=== PATIENT | male | born 1960 | race Caucasian/White ===

== ENCOUNTER 2016-12-30 16:25 | Emergency (ER) | payer MEDICAID ==
[2016-12-30 17:26] LABS: BASO % 0.7 % (0-6); EOS % 3.3 % (0-6); GRAN % 61.7 % (47-80); HEMATOCRIT 48.5 % (42.0-52.0); HEMOGLOBIN 17.3 gm/dl (14.0-18.0); MEAN CELL VOLUME 93.8 fl (81-97); MEAN CORPUSCULAR HEMOGLOBIN 33.5 pg (27-33); MEAN CORPUSCULAR HGB CONC 35.7 g/dl (32-36); MEAN PLATELET VOLUME 11.9 fl (7.4-10.4); MONO % 9.3 % (0-9); PLATELET COUNT 161 K/uL (130-400); RED BLOOD COUNT 5.17 M/uL (4.40-5.70); RED CELL DISTRIBUTION WIDTH 13.2 % (11.5-14.5); WHITE BLOOD COUNT W/O DIFF 10.8 K/uL (4.2-12.2)
[2016-12-30 17:36] LABS: BLOOD UREA NITROGEN 15 mg/dL (9-20); CREATININE 0.9 mg/dL (0.66-1.25); EST GLOMERULAR FILTRATION RATE > 60 ml/min; GLUCOSE,RANDOM 118 mg/dL (70-110)
[2016-12-30 17:54] LABS: TROPONIN I < 0.012 ng/mL (0.00-0.034)
[2016-12-30 18:06] LABS: THYROID STIMULATING HORMONE 1.93 uIU/ml (0.465-4.68)
--- NOTE | 2016-12-30 18:23 | Emergency Department Record ---
History of Present Illness - General Chief Complaint: Arrythmia/Palpitations Stated Complaint: THINKS PACEMAKER NOT WORKING Time Seen by Provider: 12/30/16 16:38 Source: Patient Mode of Arrival: Ambulatory Limitations: No limitations - History of Present Illness Initial Comments: pt had a pacer put in 3 days ago in [place]. he feels it is not working properly. he has had palpitations and states hes very weak and 'something is not right'. he states he was supposed to feel better and have more energy but he does not MD Complaint: Palpitations Onset/Timin -: Days(s) Context: Occurred during rest Arrythmia History: Pacemaker Associated Symptoms: Denies other symptoms, Anxiety - Related Data Home Medications Medication Instructions Recorded Confirmed Last Taken Aspirin 81 mg PO DAILY 12/30/16 12/30/16 1 Day Ago ~12/29/16 Carvedilol 6.25 mg PO DAILY 12/30/16 12/30/16 1 Day Ago ~12/29/16 Previous Rx's Medication Instructions Recorded Lorazepam [Ativan] 0.5 mg PO TID #10 tablet 12/30/16 Allergies Allergy/AdvReac Type Severity Reaction Status Date / Time acetaminophen [From Vicodin] Allergy Intermediate VOMITING Verified 12/30/16 16: 44 hydrocodone bitartrate Allergy Intermediate VOMITING Verified 12/30/16 16:44 [From Vicodin] morphine Allergy Intermediate VOMITING Verified 12/30/16 16:44 Penicillins Allergy VOMITING Verified 12/30/16 16:44 Travel Screening - Travel/Exposure Within Last 30 Days Have you traveled within the last 30 days?: No - Travel/Exposure Within Last Year Have you traveled outside the [place] in the last year?: No - Additonal Travel Details Have you been exposed to anyone with a communicable illness?: No - Travel Symptoms Symptom Screening: None Review of Systems Reviewed: No additional complaints except as noted below Constitutional: Reports: As per HPI. Denies: Chills, Fever, Malaise, Night sweats, Weakness, Weight change Eyes: Reports: As per HPI. Denies: Eye discharge, Eye pain, Photophobia, Vision change ENT: Reports: As per HPI. Denies: Congestion, Dental pain, Ear pain, Epistaxis , Hearing loss, Throat pain Respiratory: Reports: As per HPI. Denies: Cough, Dyspnea, Hemoptysis, Stridor, Wheezes Cardiovascular: Reports: As per HPI. Denies: Arrhythmia, Chest pain, Dyspnea on exertion, Edema, Murmurs, Orthopnea, Palpitations, Paroxysmal nocturnal dyspnea, Rheumatic Fever, Syncope Endocrine: Reports: As per HPI. Denies: Fatigue, Heat or cold intolerance, Polydipsia, Polyuria Gastrointestinal: Reports: As per HPI. Denies: Abdominal pain, Constipation, Diarrhea, Hematemesis, Hematochezia, Melena, Nausea, Vomiting Genitourinary: Reports: As per HPI. Denies: Dysuria, Frequency, Hematuria, Incontinence, Retention, Testicular pain, Testicular mass, Urgency Musculoskeletal: Reports: As per HPI. Denies: Arthralgia, Back pain, Gout, Joint swelling, Myalgia, Neck pain Skin: Reports: As per HPI. Denies: Bruising, Change in color, Change in hair/ nails, Lesions, Pruritus, Rash Neurological: Reports: As per HPI. Denies: Abnormal gait, Confusion, Headache, Numbness, Paresthesias, Seizure, Tingling, Tremors, Vertigo, Weakness Psychiatric: Reports: As per HPI. Denies: Anxiety, Auditory hallucinations, Depression, Homicidal thoughts, Suicidal thoughts, Visual hallucinations Hematological/Lymphatic: Reports: As per HPI. Denies: Anemia, Blood Clots, Easy bleeding, Easy bruising, Swollen glands Past Medical History - SOCIAL HISTORY Smoking Status: Current every day smoker Alcohol Use: None Alcohol Use Comment: none in 3 months Drug Use: None - RESPIRATORY Hx Respiratory Disorders: No - CARDIOVASCULAR Hx Abnormal EKG: Yes Hx Hypertension: Yes Hx Irregular Heartbeat: Yes Hx Palpitations: Yes Hx Pacemaker/Defib: Yes Comment:: all started in August and discoverwed low HR - NEURO Hx Neuro Disorders: No - GI Hx Reflux: Yes - Hx Genitourinary Disorders: No - ENDOCRINE Hx Diabetes: No Hx Thyroid Disease: No - PSYCH Hx Psych Problems: No - HEMATOLOGY/ONCOLOGY Hx Anemia: No Hx Blood Disorders: No Hx Bruising: No Hx Cancer: No Family Medical History Any Significant Family History?: Yes Hx Cancer: Mother Hx Heart Disease: Father Hx HTN: Mother Hx Stroke: Mother Physical Exam - General General Appearance: Alert, Oriented x3, Cooperative, Mild distress - Head Head exam: Normal inspection - Eye Eye exam: Normal appearance, PERRL, EOMI Pupils: Normal accommodation - ENT ENT exam: Normal exam, Mucous membranes moist, Normal external ear exam, Normal orophraynx Ear exam: Normal external inspection. negative: External canal tenderness Nasal Exam: Normal inspection. negative: Discharge, Sinus tenderness Mouth exam: Normal external inspection, Tongue normal Teeth exam: Normal inspection. negative: Dental caries Throat exam: Normal inspection. negative: Tonsillar erythema, Tonsillar exudate - Neck Neck exam: Normal inspection, Full ROM. negative: Tenderness - Respiratory Respiratory exam: Normal lung sounds bilaterally. negative: Respiratory distress - Cardiovascular Cardiovascular Exam: Regular rate, Normal rhythm, Normal heart sounds - GI/Abdominal GI/Abdominal exam: Soft, Normal bowel sounds. negative: Tenderness - Rectal Rectal exam: Deferred - exam: Deferred - Extremities Extremities exam: Normal inspection, Full ROM, Normal capillary refill. negative: Tenderness - Back Back exam: Reports: Normal inspection, Full ROM. Denies: Muscle spasm, Rash noted, Tenderness - Neurological Neurological exam: Alert, CN II-XII intact, Normal gait, Oriented X3 - Psychiatric Psychiatric exam: Normal affect, Normal mood - Skin Skin exam: Dry, Intact, Normal color, Warm Course Vital Signs 12/30/16 16:32 Temperature 97.7 F Pulse Rate 60 Respiratory 18 Rate Blood Pressure 172/116 Pulse Ox 95 - Reevaluation(s) Reevaluation #1: 12/30/16 18:31 d/w dr cardenas in [place] who is seconds handler for dr chung Medical Decision Making - Lab Data Result diagrams: 12/30/16 17:25 12/30/16 17:25 Lab Results 12/30/16 12/30/16 Range/Units 17:25 17:25 WBC 10.8 (4.2-12.2) K/uL RBC 5.17 (4.40-5.70) M/uL Hgb 17.3 (14.0-18.0) gm/dl Hct 48.5 (42.0-52.0) % MCV 93.8 (81-97) fl MCH 33.5 H (27-33) pg MCHC 35.7 (32-36) g/dl RDW 13.2 (11.5-14.5) % Plt Count 161 (130-400) K/uL MPV 11.9 H (7.4-10.4) fl Gran % 61.7 (47-80) % Lymphocytes % 25.0 (16-45) % Monocytes % 9.3 H (0-9) % Eosinophils % 3.3 (0-6) % Basophils % 0.7 (0-6) % Sodium 141 (136-145) mmol/L Potassium 3.8 (3.5-5.1) mmol/L Chloride 105 (98-107) mmol/L Carbon Dioxide 30.0 (22-30) mmol/L Anion Gap 6.0 L (7-16) BUN 15 (9-20) mg/dL Creatinine 0.9 (0.66-1.25) mg/dL Estimated GFR > 60 ml/min Random Glucose 118 H (70-110) mg/dL Calcium 9.6 (8.5-10.1) mg/dL Troponin I < 0.012 (0.00-0.034) ng/mL TSH 1.93 (0.465-4.68) uIU/ml Disposition Disposition: Discharge Clinical Impression: Heart palpitations, Postsurgical cardiac pacemaker in situ Disposition: Home, Self-Care Condition: (1) Good Instructions: Heart Palpitations (ED) Additional Instructions: follow up with stadium manager this week. return sooner if worse. Prescriptions: Lorazepam [Ativan] 0.5 mg PO TID #10 tablet Forms: Patient Portal Access Quality - Quality Measures Quality Measures: N/A - Blood Pressure Screening Does Patient Have Any of the Following: Active Dx of HTN Blood Pressure Classification: Hypertensive Reading Systolic Measurement: 172 Diastolic Measurement: 116 Screening for High Blood Pressure: Patient Exclusion, Hx of HTN [G9744]
[2016-12-30] MEDS ORDERED: LORAZEPAM 2 MG/ML VIAL IV ONE (18:35)
[2016-12-30] MEDS ORDERED: CARVEDILOL 3.125 MG TABLET PO ONE (19:13)
--- NOTE | 2016-12-31 22:36 | RADIOLOGY REPORT ---
EXAM: CHEST 2 VIEWS HISTORY: PACEMAKER PLACED 12/27/16. REDNESS AND SWELLING AROUND THE SURGICAL SITE. TECHNIQUE: Two views. COMPARISON: 12/21/16. FINDINGS: The heart is not enlarged and there is no mediastinal mass. No infiltrate or vascular congestion. A pacemaker is present. The pacemaker power pack overlies the left upper thorax. No pneumothorax. IMPRESSION: 1. THERE IS A PACEMAKER IN PLACE. 2. CHEST OTHERWISE UNREMARKABLE. JOB NUMBER: [id number] MTDD
== END 2016-12-30 19:30 | disposition home or self-care (01) ==
LOC: ER 16:25
DX: R00.2 Palpitations (principal); Z95.0 Presence of cardiac pacemaker; I10 Essential (primary) hypertension; F17.210 Nicotine dependence, cigarettes, uncomplicated
CPT/HCPCS: 99284 ×2; 96374; 85025; 84484; 80048; 84443; 71020; 93005; 93010; J2060

== ENCOUNTER 2017-01-12 09:09 | Emergency (ER) | payer MEDICAID ==
--- NOTE | 2017-01-12 09:39 | Emergency Department Record ---
History of Present Illness - General Chief Complaint: Wound, puncture Stated Complaint: SURGICAL SITE DRAINING Time Seen by Provider: 01/12/17 09:20 Source: Patient Mode of Arrival: Ambulatory Limitations: No limitations - History of Present Illness Initial Commments: pt came in because his incision for his newly placed pacer was oozing dark blood. he had the jay removed 2 days ago and glue was placed. road gang supervisor had told him that if it started bleeding again to go to an er and have more glue placed on it. Onset/Timin -: Hour(s) Location: Chest Place: Home Associated Symptoms: None Treatments Prior to Arrival: Bandage - Karoline Coma Scale Eye Response: (4) Open spontaneously Motor Response: (6) Obeys commands Verbal Response: (5) Oriented Karoline Total: 15 - Related Data Previous Rx's Medication Instructions Recorded Lorazepam [Ativan] 0.5 mg PO TID #10 tablet 12/30/16 Allergies Allergy/AdvReac Type Severity Reaction Status Date / Time acetaminophen [From Vicodin] AdvReac Intermediate VOMITING Verified 01/12/17 09: 15 hydrocodone bitartrate AdvReac Intermediate VOMITING Verified 01/12/17 09:15 [From Vicodin] morphine AdvReac Intermediate VOMITING Verified 01/12/17 09:15 Penicillins AdvReac VOMITING Verified 01/12/17 09:15 Travel Screening - Travel/Exposure Within Last 30 Days Have you traveled within the last 30 days?: No Review of Systems Reviewed: No additional complaints except as noted below Constitutional: Reports: As per HPI. Denies: Chills, Fever, Malaise, Night sweats, Weakness, Weight change Eyes: Reports: As per HPI. Denies: Eye discharge, Eye pain, Photophobia, Vision change ENT: Reports: As per HPI. Denies: Congestion, Dental pain, Ear pain, Epistaxis , Hearing loss, Throat pain Respiratory: Reports: As per HPI. Denies: Cough, Dyspnea, Hemoptysis, Stridor, Wheezes Cardiovascular: Reports: As per HPI. Denies: Arrhythmia, Chest pain, Dyspnea on exertion, Edema, Murmurs, Orthopnea, Palpitations, Paroxysmal nocturnal dyspnea, Rheumatic Fever, Syncope Endocrine: Reports: As per HPI. Denies: Fatigue, Heat or cold intolerance, Polydipsia, Polyuria Gastrointestinal: Reports: As per HPI. Denies: Abdominal pain, Constipation, Diarrhea, Hematemesis, Hematochezia, Melena, Nausea, Vomiting Genitourinary: Reports: As per HPI. Denies: Dysuria, Frequency, Hematuria, Incontinence, Retention, Testicular pain, Testicular mass, Urgency Musculoskeletal: Reports: As per HPI. Denies: Arthralgia, Back pain, Gout, Joint swelling, Myalgia, Neck pain Skin: Reports: As per HPI. Denies: Bruising, Change in color, Change in hair/ nails, Lesions, Pruritus, Rash Neurological: Reports: As per HPI. Denies: Abnormal gait, Confusion, Headache, Numbness, Paresthesias, Seizure, Tingling, Tremors, Vertigo, Weakness Psychiatric: Reports: As per HPI. Denies: Anxiety, Auditory hallucinations, Depression, Homicidal thoughts, Suicidal thoughts, Visual hallucinations Hematological/Lymphatic: Reports: As per HPI. Denies: Anemia, Blood Clots, Easy bleeding, Easy bruising, Swollen glands Past Medical History - SOCIAL HISTORY Smoking Status: Current every day smoker Alcohol Use: None Drug Use: None - RESPIRATORY Hx Respiratory Disorders: No - CARDIOVASCULAR Hx Cardio Disorders: Yes Hx Abnormal EKG: Yes Hx Hypertension: Yes Hx Irregular Heartbeat: Yes Hx Palpitations: Yes Hx Pacemaker/Defib: Yes - NEURO Hx Neuro Disorders: No - GI Hx GI Disorders: Yes Hx Reflux: Yes - Hx Genitourinary Disorders: No - ENDOCRINE Hx Endocrine Disorders: No - MUSCULOSKELETAL Hx Musculoskeletal Disorders: Yes - PSYCH Hx Psych Problems: No - HEMATOLOGY/ONCOLOGY Hx Hematology/Oncology Disorders: No Family Medical History Any Significant Family History?: Yes Hx Cancer: Mother Hx Heart Disease: Father Hx HTN: Mother Hx Stroke: Mother Physical Exam - General General Appearance: Alert, Oriented x3, Cooperative, Mild distress - Head Head exam: Normal inspection - Eye Eye exam: Normal appearance, PERRL, EOMI Pupils: Normal accommodation - ENT ENT exam: Normal exam, Mucous membranes moist, Normal external ear exam, Normal orophraynx Ear exam: Normal external inspection. negative: External canal tenderness Nasal Exam: Normal inspection. negative: Discharge, Sinus tenderness Mouth exam: Normal external inspection, Tongue normal Teeth exam: Normal inspection. negative: Dental caries Throat exam: Normal inspection. negative: Tonsillar erythema, Tonsillar exudate - Neck Neck exam: Normal inspection, Full ROM. negative: Tenderness - Respiratory Respiratory exam: Normal lung sounds bilaterally, Chest wall tenderness, Other ( pacer site is oozing dark blood). negative: Respiratory distress - Cardiovascular Cardiovascular Exam: Regular rate, Normal rhythm, Normal heart sounds - GI/Abdominal GI/Abdominal exam: Soft, Normal bowel sounds. negative: Tenderness - Rectal Rectal exam: Deferred - exam: Deferred - Extremities Extremities exam: Normal inspection, Full ROM, Normal capillary refill. negative: Tenderness - Back Back exam: Reports: Normal inspection, Full ROM. Denies: Muscle spasm, Rash noted, Tenderness - Neurological Neurological exam: Alert, CN II-XII intact, Normal gait, Oriented X3 - Psychiatric Psychiatric exam: Normal affect, Normal mood - Skin Skin exam: Dry, Intact, Normal color, Warm Course Vital Signs 01/12/17 09:19 Temperature 98.0 F Pulse Rate 68 Respiratory 20 Rate Blood Pressure 157/125 Pulse Ox 96 - Reevaluation(s) Reevaluation #1: 01/12/17 10:15 d/w dr Avalos who wants pt to come see him if it bleeds more. i told dr avalos i was concerned it might dehisce Disposition Disposition: Discharge Clinical Impression: Surgical site reaction Qualifiers: Encounter type: initial encounter Qualified Code(s): T81.9XXA - Unspecified complication of procedure, initial encounter Hypertension Qualifiers: Hypertension type: essential hypertension Qualified Code(s): I10 - Essential ( primary) hypertension Disposition: Home, Self-Care Condition: (1) Good Instructions: Wound Dehiscence (ED), Wound Healing and Your Diet (ED), Hypertension (ED) Additional Instructions: follow up with dr avalos. return sooner if worse. rest. continue dr urena instructions Forms: Patient Portal Access Quality - Quality Measures Quality Measures: N/A - Blood Pressure Screening Does Patient Have Any of the Following: No Blood Pressure Classification: Hypertensive Reading Systolic Measurement: 157 Diastolic Measurement: 125 Screening for High Blood Pressure: < First Hypertensive BP, F/U Documented > [ G8950] First Hypertensive Follow-up Interventions: Follow-up with rescreen GT 1 day and LT 4 weeks.
== END 2017-01-12 10:25 | disposition home or self-care (01) ==
LOC: ER 09:09
DX: L76.22 Postprocedural hemorrhage of skin and subcutaneous tissue following other procedure (principal); Y71.3 Surgical instruments, materials and cardiovascular devices (including sutures) associated with adverse incidents; I10 Essential (primary) hypertension; F17.210 Nicotine dependence, cigarettes, uncomplicated; Y92.009 Unspecified place in unspecified non-institutional (private) residence as the place of occurrence of the external cause
CPT/HCPCS: 99283

== ENCOUNTER 2017-01-13 18:29 | Emergency (ER) | payer MEDICAID ==
--- NOTE | 2017-01-13 19:22 | Emergency Department Record ---
History of Present Illness - General Chief Complaint: Wound, check Stated Complaint: PACE MAKER WOUND IS LEAKING Time Seen by Provider: 01/13/17 19:17 Source: Patient Mode of arrival: Ambulatory Limitations: No limitations - History of Present Illness Initial Comments: 56 yo male returns to ED for evaluation of mild bleeding from his pacemaker site in the left chest wall. Patient reports that his pacemaker was placed on , was seen by his hide inspector in follow-up for staple removal at the surgical site 4 days ago. Patient reports that his pacemaker site began bleeding yesterday, patient was seen at [facility] and repaired with Dermabond after speaking with the patient's hide inspector. Patient reports that while walking in [facility] today, his sound began to ooze dark blood again. MD Complaint: Wound re-check Onset/Timin -: Days(s) Initial Visit For: Other Returns Today for: Wound recheck, Other (bleeding from post-surgical site) Symptoms Since Prior Visit: No new symptoms Associated Symptoms: None - Related Data Previous Rx's Medication Instructions Recorded Lorazepam [Ativan] 0.5 mg PO TID #10 tablet 12/30/16 Allergies Allergy/AdvReac Type Severity Reaction Status Date / Time acetaminophen [From Vicodin] AdvReac Intermediate VOMITING Verified 01/12/17 09: 15 hydrocodone bitartrate AdvReac Intermediate VOMITING Verified 01/12/17 09:15 [From Vicodin] morphine AdvReac Intermediate VOMITING Verified 01/12/17 09:15 Penicillins AdvReac VOMITING Verified 01/12/17 09:15 Review of Systems Constitutional: Denies: Chills, Fever, Malaise, Night sweats Eyes: Denies: Eye discharge, Eye pain ENT: Denies: Congestion, Ear pain, Epistaxis Respiratory: Denies: Cough, Dyspnea Cardiovascular: Denies: Chest pain, Dyspnea on exertion Endocrine: Denies: Fatigue, Heat or cold intolerance Gastrointestinal: Denies: Abdominal pain, Nausea, Vomiting Genitourinary: Denies: Incontinence, Retention Musculoskeletal: Denies: Arthralgia, Back pain, Gout, Joint swelling Skin: Reports: Other (mild dark bleeding from pacemaker site). Denies: Bruising , Change in color, Change in hair/nails Neurological: Denies: Headache, Paresthesias, Seizure Psychiatric: Denies: Anxiety Hematological/Lymphatic: Denies: Anemia, Blood Clots Past Medical History - SOCIAL HISTORY Smoking Status: Current every day smoker Drug Use: None - RESPIRATORY Hx Respiratory Disorders: No - CARDIOVASCULAR Hx Cardio Disorders: Yes Hx Abnormal EKG: Yes Hx Hypertension: Yes Hx Irregular Heartbeat: Yes Hx Palpitations: Yes Hx Pacemaker/Defib: Yes - NEURO Hx Neuro Disorders: No - GI Hx GI Disorders: Yes Hx Reflux: Yes - Hx Genitourinary Disorders: No - ENDOCRINE Hx Endocrine Disorders: No - MUSCULOSKELETAL Hx Musculoskeletal Disorders: Yes - PSYCH Hx Psych Problems: No - HEMATOLOGY/ONCOLOGY Hx Hematology/Oncology Disorders: No Family Medical History Hx Cancer: Mother Hx Heart Disease: Father Hx HTN: Mother Hx Stroke: Mother Physical Exam - General General Appearance: Alert, Oriented x3, Cooperative, No acute distress Limitations: No limitations - Head Head exam: Atraumatic, Normocephalic, Normal inspection Head exam detail: negative: Abrasion, Contusion, Mike's sign, General tenderness, Hematoma, Laceration - Eye Eye exam: Normal appearance. negative: Conjunctival injection, Periorbital swelling, Periorbital tenderness, Scleral icterus - ENT Ear exam: negative: Auricular hematoma, Auricular trauma Nasal Exam: negative: Active bleeding, Discharge, Dried blood, Foreign body Mouth exam: negative: Drooling, Laceration, Muffled voice, Tongue elevation Teeth exam: Dental caries - Neck Neck exam: Normal inspection. negative: Tenderness - Respiratory Respiratory exam: Normal lung sounds bilaterally. negative: Respiratory distress, Rhonchi, Stridor, Wheezes - Cardiovascular Cardiovascular Exam: Regular rate, Normal rhythm, Normal heart sounds, Other ( 0.5 cm small area of wound dehiscence resulting in very minor oozing of venous blood from his post-surgical site) - GI/Abdominal GI/Abdominal exam: Soft. negative: Rebound, Rigid, Tenderness - Rectal Rectal exam: Deferred - exam: Deferred - Extremities Extremities exam: Normal inspection. negative: Pedal edema, Tenderness - Back Back exam: Denies: CVA tenderness (R), CVA tenderness (L) - Neurological Neurological exam: Alert, Normal gait, Oriented X3 - Psychiatric Psychiatric exam: Normal affect, Normal mood - Skin Skin exam: Normal color. negative: Abrasion Type of lesion: negative: abrasion Course Vital Signs 01/13/17 19:03 Temperature 97.9 F Pulse Rate [ 77 Pulse Ox Probe] Respiratory 16 Rate Blood Pressure 111/79 [Left Arm] Pulse Ox 96 - Reevaluation(s) Reevaluation #1: 01/13/17 19:31 Procedure Note: Wound was cleaned with TLE solution, Dermabond applied to specific region of bleeding with hemostasis achieved. Patient appears stable for discharge with instructions to follow-up with his hide inspector next week as scheduled. Disposition Disposition: Discharge Clinical Impression: Postoperative bleeding from incision Disposition: Home, Self-Care Condition: (2) Stable Instructions: Wound Dehiscence (ED) Additional Instructions: Return to ED if your symptoms worsen or if you have any concerns. Follow-up with your Assistant Professor Of German in [place] next Sunday as scheduled. Forms: Patient Portal Access Time of Disposition: 19:23 Quality - Quality Measures Quality Measures: N/A - Blood Pressure Screening Does Patient Have Any of the Following: No Blood Pressure Classification: Normal BP Reading Systolic Measurement: 111 Diastolic Measurement: 79 Screening for High Blood Pressure: < Normal BP, F/U Not Required > [G8783]
== END 2017-01-13 19:43 | disposition home or self-care (01) ==
LOC: ER 18:29
DX: T81.31XA Disruption of external operation (surgical) wound, not elsewhere classified, initial encounter (principal); Y71.3 Surgical instruments, materials and cardiovascular devices (including sutures) associated with adverse incidents; Y83.8 Other surgical procedures as the cause of abnormal reaction of the patient, or of later complication, without mention of misadventure at the time of the procedure
CPT/HCPCS: 99283

== ENCOUNTER 2017-01-25 09:00 | Observation (INO) | payer MEDICAID ==
[2017-01-25] MEDS ORDERED: ONDANSETRON HCL IV 4 MG/2 ML VIAL IVP ONE ×2 (09:16→13:48)
--- NOTE | 2017-01-25 09:16 | Emergency Department Record ---
History of Present Illness - General Chief Complaint: Chest Pain Stated Complaint: CHEST PAIN/SWEATING Time Seen by Provider: 01/25/17 09:12 Source: Patient Mode of Arrival: Ambulatory Limitations: No limitations - History of Present Illness Initial Comments: The patient is here due to chest heaviness for the last hour. It is located retrosternally and does radiate to his back. He denies any SOB or sweating with the pain. The onset was at rest and the patient did walk to the ER after the onset of the pain. The pain did not worsen with exertion and he has no hx of similar pain or issues. The patient did have a pacemaker placed a month ago for a low heart rate. MD Complaint: Chest pain Onset/Timin -: Minutes(s) Onset: During rest Pain Location: Substernal Pain Radiation: Back Severity scale (1-10): 8 Quality: Heaviness Consistency: Constant Improves With: Nothing Worsens With: Nothing Anginal Symptoms: Diaphoresis, Nausea Treatments Prior to Arrival: Aspirin - Related Data Allergies Allergy/AdvReac Type Severity Reaction Status Date / Time acetaminophen [From Vicodin] AdvReac Intermediate VOMITING Verified 01/12/17 09: 15 hydrocodone bitartrate AdvReac Intermediate VOMITING Verified 01/12/17 09:15 [From Vicodin] morphine AdvReac Intermediate VOMITING Verified 01/12/17 09:15 Penicillins AdvReac VOMITING Verified 01/12/17 09:15 Travel Screening - Travel/Exposure Within Last 30 Days Have you traveled within the last 30 days?: No Review of Systems Constitutional: Denies: Chills, Fever Eyes: Denies: Eye discharge ENT: Denies: Congestion Respiratory: Denies: Cough, Dyspnea Past Medical History - SOCIAL HISTORY Smoking Status: Current every day smoker Alcohol Use: None Drug Use: None - RESPIRATORY Hx Respiratory Disorders: No - CARDIOVASCULAR Hx Cardio Disorders: Yes Hx Abnormal EKG: Yes Hx Hypertension: Yes Hx Irregular Heartbeat: Yes Hx Palpitations: Yes Hx Pacemaker/Defib: Yes - NEURO Hx Neuro Disorders: No - GI Hx GI Disorders: Yes Hx Reflux: Yes - Hx Genitourinary Disorders: No - ENDOCRINE Hx Endocrine Disorders: No Hx Diabetes: No Hx Thyroid Disease: No - MUSCULOSKELETAL Hx Musculoskeletal Disorders: Yes - PSYCH Hx Psych Problems: No - HEMATOLOGY/ONCOLOGY Hx Hematology/Oncology Disorders: No Hx Anemia: No Hx Blood Disorders: No Hx Bruising: No Hx Cancer: No Family Medical History Any Significant Family History?: Yes Hx Cancer: Mother Hx Heart Disease: Father Hx HTN: Mother Hx Stroke: Mother Physical Exam - General General Appearance: Alert, Oriented x3, Cooperative, No acute distress - Head Head exam: Atraumatic, Normocephalic, Normal inspection - Eye Eye exam: Normal appearance, PERRL - ENT Throat exam: Normal inspection. negative: Tonsillar erythema, Tonsillar exudate - Neck Neck exam: Normal inspection, Full ROM. negative: Tenderness - Respiratory Respiratory exam: Normal lung sounds bilaterally. negative: Respiratory distress - Cardiovascular Cardiovascular Exam: Regular rate, Normal rhythm, Normal heart sounds - GI/Abdominal GI/Abdominal exam: Soft, Normal bowel sounds. negative: Tenderness - Extremities Extremities exam: Normal inspection, Full ROM, Normal capillary refill. negative: Tenderness - Neurological Neurological exam: Alert. negative: Motor sensory deficit Course Vital Signs 01/25/17 09:03 Pulse Rate 60 Respiratory 14 Rate Blood Pressure 195/135 Pulse Ox 97 - Reevaluation(s) Reevaluation #1: The patient is resting comfortably. Due to his long hx of uncontrolled HTN I am concerned about a thoracic dissection. Unfortunately the lab chemistry analyzer has malfunctioned today so we will be unable to perform renal function tests. The patient has had multiple renal function tests that were normal in the last 3 months so I do feel it is safe obtaining the CT without a BUN and CR prior to the test. I did explain that to the patient and he does agree. 01/25/17 09:38 Reevaluation #2: The patient is doing much better. His pain has almost completely resolved and his BP is improved. The last BP was 159/109 in the L arm which was improved from the 170/120 15 minutes prior. 01/25/17 09:44 01/25/17 10:05 The patient is back from CT. He is doing better and his chest pain has resolved. There is still very mild pain in his back. Reevaluation #3: The patient is doing a lot better at this time. He denies any pain or discomfort and is resting comfortably. 01/25/17 10:48 Reevaluation #4: The patient is doing a lot better at this time. His US was completed and did not demonstrate a GB abnormality. Additionally his LFT's do not demonstrate an obstructive picture so we will admit the patient here at [facility]. I did discuss the case with Dr. Harris and he is willing to admit the patient. 01/25/17 14:30 Medical Decision Making - Data Complexity MDM Data: X-Ray Ordered and/or Reviewed, EKG Ordered and/or Reviewed - Lab Data Result diagrams: 01/25/17 09:10 01/25/17 09:10 - EKG Data -: EKG Interpreted by Me EKG: No Acute Changes, Normal EKG - Radiology Data Radiology results: Report reviewed (CT: Neg for PE, Dissection, or aneurysm. Possible peripancreatic inflammatory changes.) Disposition Disposition: Admit Clinical Impression: Pancreatitis, acute Qualifiers: Pancreatitis type: unspecified pancreatitis type Acute pancreatitis complication: unspecified Qualified Code(s): K85.90 - Acute pancreatitis without necrosis or infection, unspecified Disposition: Still a Patient at [facility] Decision to Admit: Admit from ER Decision to Admit Date: 01/25/17 Decision to Admit Time: 14:31 Accepting Physician: Kimberly Time Discussed w/Accepting Physician: 14:31 Condition: (2) Stable Forms: Patient Portal Access Time of Disposition: 14:31 Quality - Quality Measures Quality Measures: N/A - Blood Pressure Screening View Details: Yes Does Patient Have Any of the Following: No Blood Pressure Classification: Hypertensive Reading Systolic Measurement: 195 Diastolic Measurement: 135 Screening for High Blood Pressure: < First Hypertensive BP, F/U Documented > [ [id number]] First Hypertensive Follow-up Interventions: Referral to alternative/primary care provider.
[2017-01-25] MEDS ORDERED: HYDROMORPHONE HCL 1MG/ML **SYRINGE IVP ONE ×3 (09:17→13:49)
[2017-01-25 09:33] LABS: BASO % 0.9 % (0-6); GRAN % 52.1 % (47-80); HEMATOCRIT 52.1 % (42.0-52.0); HEMOGLOBIN 18.3 gm/dl (14.0-18.0); LYMPH % 32.7 % (16-45); MEAN CELL VOLUME 94.4 fl (81-97); MEAN CORPUSCULAR HGB CONC 35.1 g/dl (32-36); MEAN PLATELET VOLUME 11.2 fl (7.4-10.4); MONO % 11.3 % (0-9); PLATELET COUNT 171 K/uL (130-400); RED BLOOD COUNT 5.52 M/uL (4.40-5.70); RED CELL DISTRIBUTION WIDTH 13.3 % (11.5-14.5); WHITE BLOOD COUNT W/O DIFF 10.4 K/uL (4.2-12.2)
[2017-01-25] MEDS ORDERED: 0.9 % SODIUM CHLORIDE 1,000 ML BAG IV ONE (09:36)
[2017-01-25] MEDS ORDERED: SODIUM CHLORIDE 0.9% 500 ML IV ONE (09:38)
[2017-01-25 09:49] LABS: MEAN CORPUSCULAR HEMOGLOBIN 33.1 pg (27-33)
[2017-01-25 10:00] LABS: INR 1.18; PARTIAL THROMBOPLASTIN TIME 27.2 SECONDS (24.5-39.1); PROTHROMBIN TIME (PATIENT) 12.8 SECONDS (9.5-12.1)
[2017-01-25] MEDS ORDERED: ASPIRIN 325 MG TABLET PO ONE (10:15)
[2017-01-25 14:26] LABS: ALBUMIN 4.4 g/dL (4.0-5.0); ALKALINE PHOSPHATASE 106 U/L (40-129); ALT/SGPT 87 U/L (<41); AST/SGOT 60 U/L (10.0-50.0); BILIRUBIN,DIRECT < 0.2 mg/dL (0-0.3); TOTAL PROTEIN 7.6 g/dL (6.6-8.7)
[2017-01-25] MEDS ORDERED: HYDROMORPHONE HCL 1MG/ML **SYRINGE IVP PRN (16:07)
[2017-01-25] MEDS ORDERED: ONDANSETRON HCL IV 4 MG/2 ML VIAL IVP PRN (16:07)
[2017-01-25] MEDS ORDERED: PANTOPRAZOLE SODIUM IV 40 MG VIAL IVP SCH (17:00)
[2017-01-25] MEDS ORDERED: AMLODIPINE BESYLATE 5MG TAB PO PRN (17:03)
[2017-01-25] MEDS: 0.9 % SODIUM CHLORIDE 1000ML 1,000 ML IV PRN (17:08)
--- NOTE | 2017-01-25 20:23 | History & Physical ---
History of Present Illness - Date of Service Date of Service for History & Physical: 01/25/17 - History of Present Illness Admitting Diagnosis: 1. Acute Pancreatitis. History of Present Illness: Mr. Bone is a 56 y/o male who presents with acute epigastric and central chest pain which began today. The pain is described as sharp, 7/10 in severity and radiating to his mid back The patient denies shortness of breath, palpitations, N/V or headache. He was recently seen in [facility] to establish PCP and for BP management. He was on Coreg 6.25 mg BID but this was d/cd as the patient most recently had a pacer implanted due to symptomatic bradycardia. He has had 2 revisions to the implanted device in recent weeks due to pocket infection and pacing malfunction where he received a 10 day course or antibiotics. On arrival to the ED the patient was not in any significant pain, and ECG and labs were not suggestive of acute coronary syndrome. The labs did show elevated lipase andthe patient's BP was elevated. There was concern for abdominal aneurysm and CTA was ordered which showed evidence of peripancreatic inflammation. The patient denies recent Etoh use, or history of gallstones. He was started on IV fluids, Dilaudid, Zofran and bowel rest. On examination the patient is awake, alert and oriented. He does not appear to be in acute distress. Travel Screening - Travel/Exposure Within Last 30 Days Have you traveled within the last 30 days?: No - Travel/Exposure Within Last Year Have you traveled outside the [place] in the last year?: No - Additonal Travel Details Have you been exposed to anyone with a communicable illness?: No - Travel Symptoms Symptom Screening: None Review of Systems Constitutional: Denies: Chills, Fever Eyes: Denies: Eye discharge ENT: Denies: Congestion Respiratory: Denies: Cough, Dyspnea Cardiovascular: Reports: Chest pain Endocrine: Reports: As per HPI. Denies: Fatigue, Heat or cold intolerance, Polydipsia, Polyuria Gastrointestinal: Reports: As per HPI. Denies: Abdominal pain, Constipation, Diarrhea, Hematemesis, Hematochezia, Melena, Nausea, Vomiting Genitourinary: Reports: As per HPI. Denies: Dysuria, Frequency, Hematuria, Incontinence, Retention, Testicular pain, Testicular mass, Urgency Musculoskeletal: Reports: As per HPI. Denies: Arthralgia, Back pain, Gout, Joint swelling, Myalgia, Neck pain Neurological: Reports: As per HPI. Denies: Abnormal gait, Confusion, Headache, Numbness, Paresthesias, Seizure, Tingling, Tremors, Vertigo, Weakness Psychiatric: Reports: As per HPI. Denies: Anxiety, Auditory hallucinations, Depression, Homicidal thoughts, Suicidal thoughts, Visual hallucinations Hematological/Lymphatic: Reports: As per HPI. Denies: Anemia, Blood Clots, Easy bleeding, Easy bruising, Swollen glands Past Medical History - SOCIAL HISTORY Smoking Status: Current every day smoker Alcohol Use: None Alcohol Use Comment: stopped 4 months ago Drug Use: None - RESPIRATORY Hx Respiratory Disorders: No - CARDIOVASCULAR Hx Cardio Disorders: Yes Hx Abnormal EKG: Yes Hx Chest Pain: Yes Hx Hypertension: Yes Hx Irregular Heartbeat: Yes Hx Palpitations: Yes Hx Pacemaker/Defib: Yes (recent [employer] device implanted ) - NEURO Hx Neuro Disorders: Yes Hx Headaches: Yes (chronic) - GI Hx GI Disorders: Yes Hx Reflux: Yes Hx Hepatitis/Jaundice: Yes (Hep C) Hx Pancreatitis: Yes (new dx in ER) - Hx Genitourinary Disorders: No - ENDOCRINE Hx Endocrine Disorders: No Hx Diabetes: No Hx Thyroid Disease: No - MUSCULOSKELETAL Hx Musculoskeletal Disorders: Yes - PSYCH Hx Psych Problems: No - HEMATOLOGY/ONCOLOGY Hx Hematology/Oncology Disorders: No Hx Anemia: No Hx Blood Disorders: No Hx Bruising: No Hx Cancer: No Family Medical History Any Significant Family History?: Yes Hx Cancer: Mother Hx Heart Disease: Father Hx HTN: Mother Hx Stroke: Mother H&P Meds/Allergies - Allergies Allergies: Allergies Allergy/AdvReac Type Severity Reaction Status Date / Time acetaminophen [From Vicodin] AdvReac Intermediate VOMITING Verified 01/12/17 09: 15 hydrocodone bitartrate AdvReac Intermediate VOMITING Verified 01/12/17 09:15 [From Vicodin] morphine AdvReac Intermediate VOMITING Verified 01/12/17 09:15 Penicillins AdvReac VOMITING Verified 01/12/17 09:15 - Active Medications Active Medications: Current Medications Amlodipine Besylate (Norvasc) 5 mg PO DAILY PRN PRN Reason: hypertension Last Admin: 01/25/17 19:38 Dose: 5 mg Hydromorphone HCl (Dilaudid) 1 mg IVP Q4H PRN PRN Reason: Analgesia Last Admin: 01/25/17 19:39 Dose: 1 mg Sodium Chloride () 1,000 mls @ 125 mls/hr IV .Q8H PRN PRN Reason: LARGE VOLUME IV Last Admin: 01/25/17 17:08 Dose: 125 mls/hr Lisinopril (Zestril) 40 mg PO DAILY SEBASTIEN Ondansetron HCl (Zofran) 4 mg IVP Q4H PRN PRN Reason: NAUSEA Last Admin: 01/25/17 19:43 Dose: 4 mg Pantoprazole Sodium (Protonix Iv) 40 mg IVP Q24H SEBASTIEN Last Admin: 01/25/17 17:08 Dose: 40 mg Physical Exam - Vital Signs Vital Signs: Vital Signs - Last 24 Hrs Temp Pulse Pulse Resp BP BP Pulse Ox 01/25/17 18:21 60 16 01/25/17 18:07 60 18 152/97 96 01/25/17 17:19 60 16 98 01/25/17 16:07 97.5 F L 60 18 137/102 97 01/25/17 16:06 54 L 20 141/105 96 - General General Appearance: Alert, Oriented x3, Cooperative, No acute distress Limitations: No limitations - Head Head exam: Atraumatic, Normocephalic, Normal inspection - Eye Eye exam: Normal appearance, PERRL - ENT Throat exam: Normal inspection. negative: Tonsillar erythema, Tonsillar exudate - Neck Neck exam: Normal inspection, Full ROM. negative: Tenderness - Respiratory Respiratory exam: Normal lung sounds bilaterally. negative: Respiratory distress - Cardiovascular Cardiovascular Exam: Regular rate, Normal rhythm, Normal heart sounds - GI/Abdominal GI/Abdominal exam: Soft, Normal bowel sounds. negative: Bruit, Guarding, Tenderness - Extremities Extremities exam: Normal inspection, Full ROM, Normal capillary refill. negative: Tenderness - Neurological Neurological exam: Alert. negative: Motor sensory deficit Results - Labs Result Diagrams: 01/25/17 09:10 01/25/17 09:10 Labs Last 24 Hours: Laboratory Results - last 24 hr 01/25/17 01/25/17 01/25/17 16:30 16:30 Unknown Total Bilirubin Not Reportable Direct Bilirubin < 0.2 AST 60 H ALT 87 H Alkaline Phosphatase 106 CK-MB (CK-2) 1.6 Troponin I < 0.30 Total Protein 7.6 Albumin 4.4 VTE H&P Assessment - Risk for VTE Risk for VTE: Yes Risk Level: Low Risk Assessment Date: 01/25/17 Risk Assessment Time: 20:29 VTE Orders Placed or Will Be Placed: Yes AMI H&P Plan - AMI AMI Reason For No ASA Ordered: Not Indicated AMI Reason For No Statins Ordered: Not Indicated Plan - Inpatient Certification Inpatient Certification: Admit to inpatient care: Based on my medical assessment, after consideration of patient's risk factors (age, co-morbidities and patient presenting symptoms and acuity), I expect that this patient will remain in the hospital greater than or equal to two midnights and that the services needed warrant inpatient care because: Patient Risk Factors: HTN, smoking Estimated length of stay: 24 hours The patient may reasonably be expected to be discharged or transferred to a hospital within 96 hours after admission to [facility]. I certify that my determination is in accordance with my understanding of Medicare requirements for reasonable and necessary inpatient services. - Detailed Diagnosis and Plan (1) Pancreatitis, acute Plan: - pt presents with aacute abdominal/chest pain w/ radiation to the back. He has a hx of Etoh but not in recent months. He has no hx of biliary stones or previous pancreatic disease. LFTs mildly elevated, lipase > 1,700 - not documented in chart. - CTA abdomen notes peripancreatic inflammation, abdominal US completed and results pending. - cont Nacl 0.9% @ 100mL/hr, zofran 4mg Q4H PRN, Dilaudid 1 mg IV Q4H PRN, Protonix 40mg IV QD - keep patient NPO and advance diet as tolerated , vitals Q8H, repeat lytes, cbc in am. BISAP score 0 Current Visit: Yes Status: Acute Qualifiers: Pancreatitis type: unspecified pancreatitis type Acute pancreatitis complication: unspecified Qualified Code(s): K85.90 - Acute pancreatitis without necrosis or infection, unspecified Base Code: K85.90 - ACUTE PANCREATITIS WITHOUT NECROSIS OR INFECTION, UNSP (2) Hypertension Plan: - BP 152/97 this evening. - patient to resume Lisinopril 40mg and start Norvasc 5mg Current Visit: No Status: Acute Qualifiers: Hypertension type: essential hypertension Qualified Code(s): I10 - Essential (primary) hypertension Base Code: I10 - ESSENTIAL (PRIMARY) HYPERTENSION (3) Postsurgical cardiac pacemaker in situ Plan: - recent pacemaker implantation in [facility] s/p revisions x 2. - pt completed 10 day course of abx w/ improvement in pain and swelling of implantation site. - ECG shows paced rhythm, pt on telemetry monitoring, troponins negative Current Visit: No Status: Acute Base Code: Z95.0 - PRESENCE OF CARDIAC PACEMAKER (4) Full code status Plan: FULL CODE Current Visit: Yes Status: Acute Base Code: Z78.9 - OTHER SPECIFIED HEALTH STATUS (5) Tobacco abuse Plan: - pt counseled on tobacco use and counseled on cessation > 5 mins. Current Visit: Yes Status: Acute Base Code: Z72.0 - TOBACCO USE - Disposition D/C tomorrow if pt tolerates diet tonight/morning.
[2017-01-26] MEDS: 0.9 % SODIUM CHLORIDE 1000ML 1,000 ML IV PRN (01:53)
[2017-01-26 06:58] LABS: BASO % 0.5 % (0-6); EOS % 3.4 % (0-6); GRAN % 57.8 % (47-80); HEMATOCRIT 46.5 % (42.0-52.0); HEMOGLOBIN 16.5 gm/dl (14.0-18.0); LYMPH % 27.4 % (16-45); MEAN CELL VOLUME 93.8 fl (81-97); MEAN CORPUSCULAR HEMOGLOBIN 33.3 pg (27-33); MEAN CORPUSCULAR HGB CONC 35.5 g/dl (32-36); MEAN PLATELET VOLUME 10.8 fl (7.4-10.4); MONO % 10.9 % (0-9); PLATELET COUNT 151 K/uL (130-400); RED BLOOD COUNT 4.96 M/uL (4.40-5.70); RED CELL DISTRIBUTION WIDTH 13.3 % (11.5-14.5); WHITE BLOOD COUNT W/O DIFF 9.2 K/uL (4.2-12.2)
--- NOTE | 2017-01-26 07:19 | CT ANGIOGRAM REPORT ---
EXAM: CTA OF THE CHEST HISTORY: ELEVATED D-DIMER. TECHNIQUE: CTA of the chest was performed following IV administration of 93 ml of Omnipaque 350 contrast. Axial images were obtained with coronal and sagittal MIP reconstructions. Comparison: None. FINDINGS: The mediastinal vasculature enhances normally. There is no intraluminal filling defect to suggest pulmonary embolus. Negative for thoracic aortic aneurysm or dissection. Coronary artery calcification. No mediastinal or hilar adenopathy. Limited evaluation of the upper abdomen demonstrates a 10 mm nodule of the right adrenal gland, likely adenoma. The osseous structures are grossly intact. No pneumothorax. The visualized airways are patent. Mild emphysematous changes in the upper lobes and apices. The lungs are clear. IMPRESSION: 1. NEGATIVE FOR PULMONARY EMBOLUS, THORACIC AORTIC ANEURYSM, OR DISSECTION. MILD EMPHYSEMATOUS CHANGES IN THE UPPER LOBES AND APICES. 2. NOT STATED PREVIOUSLY, THERE IS PARTIAL VISUALIZATION OF PERIPANCREATIC INFLAMMATORY CHANGES, LIKELY RELATING TO ACUTE PANCREATITIS. CORRELATE WITH ENZYME LEVELS. 3. 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 THIS COULD BE FOLLOWED NONEMERGENTLY WITH DEDICATED MRI. JOB NUMBER: [id number] [facility]
--- NOTE | 2017-01-26 07:24 | ULTRASOUND REPORT ---
EXAM: ULTRASOUND OF THE ABDOMEN HISTORY: PAIN. TECHNIQUE: Complete transabdominal ultrasound of the abdomen was obtained. Comparison: CTA of the chest from today's date. FINDINGS: There is a 2.5 x 2.5 cm echogenic mass in the inferior right hepatic lobe. This was also present on the CTA of the chest. In the absence of cancer history this likely relates to hemangioma. Slightly coarsened echotexture to the liver which may reflect fatty infiltrative change. No other liver lesions. No gallstones or gallbladder wall thickening. The CBD measures 3 mm. The pancreas is not seen due to bowel gas. The spleen is unremarkable at 8 cm. The right kidney measures 9 x 6 cm. The left kidney measures 11 x 5 cm. No renal calculus, mass, or hydronephrosis. The visualized abdominal aorta and inferior vena cava are unremarkable. No free fluid. IMPRESSION: SLIGHTLY COARSENED ECHOTEXTURE TO THE LIVER WHICH MAY REFLECT FATTY INFILTRATIVE CHANGE. ECHOGENIC FOCUS IN THE RIGHT HEPATIC LOBE, LIKELY HEMANGIOMA IN THE ABSENCE OF CANCER HISTORY. THIS COULD BE FOLLOWED NONEMERGENTLY WITH DEDICATED MRI. JOB NUMBER: [id number] [facility]
[2017-01-26 07:57] LABS: BLOOD UREA NITROGEN 12 mg/dL (6-20); CREATININE 0.7 mg/dL (0.7-1.2); EST GLOMERULAR FILTRATION RATE > 60 mL/min; GLUCOSE,RANDOM 92 mg/dL (74-109)
[2017-01-26 08:14] LABS: LIPASE 542 U/L (13-60)
[2017-01-26] MEDS ORDERED: LISINOPRIL 20 MG TABLET PO SCH (10:00)
--- NOTE | 2017-01-26 14:27 | Discharge Summary ---
Providers Discharge Summary Date: 01/27/17 Date of admission: 01/25/17 15:49 Attending physician: Kevin Lozada Primary care physician: ANNE NOYOLA Physical Exam - Vital Signs Vital Signs: Vital Signs - Last 24 Hrs Temp Pulse Pulse Resp BP BP BP 01/26/17 10:00 97.7 F 69 18 140/92 01/26/17 09:59 64 16 01/26/17 09:00 60 16 01/26/17 06:28 16 01/26/17 06:00 97.7 F 60 18 136/87 01/26/17 00:21 97.7 F 60 16 147/87 01/25/17 22:07 97.8 F 60 18 140/88 01/25/17 21:00 16 01/25/17 18:21 60 16 01/25/17 18:07 60 18 152/97 01/25/17 17:19 60 16 01/25/17 16:07 97.5 F L 60 18 137/102 01/25/17 16:06 54 L 20 141/105 Pulse Ox 01/26/17 10:00 97 01/26/17 09:59 95 01/26/17 09:00 01/26/17 06:28 99 01/26/17 06:00 94 L 01/26/17 00:21 94 L 01/25/17 22:07 95 01/25/17 21:00 01/25/17 18:21 01/25/17 18:07 96 01/25/17 17:19 98 01/25/17 16:07 97 01/25/17 16:06 96 - General General Appearance: Alert, Oriented x3, Cooperative, No acute distress Limitations: No limitations - Head Head exam: Atraumatic, Normocephalic, Normal inspection - Eye Eye exam: Normal appearance, PERRL - ENT Throat exam: Normal inspection. negative: Tonsillar erythema, Tonsillar exudate - Neck Neck exam: Normal inspection, Full ROM. negative: Tenderness - Respiratory Respiratory exam: Normal lung sounds bilaterally. negative: Respiratory distress - Cardiovascular Cardiovascular Exam: Regular rate, Normal rhythm, Normal heart sounds - GI/Abdominal GI/Abdominal exam: Soft, Normal bowel sounds. negative: Bruit, Guarding, Tenderness - Extremities Extremities exam: Normal inspection, Full ROM, Normal capillary refill. negative: Tenderness - Neurological Neurological exam: Alert. negative: Motor sensory deficit Hospitalization - Hospitalization Admission Diagnosis: 1. Acute Pancreatitis. - Problem List/Discharge Diagnosis (1) Pancreatitis, acute Plan: - pt presents with aacute abdominal/chest pain w/ radiation to the back. He has a hx of Etoh but not in recent months. He has no hx of biliary stones or previous pancreatic disease. LFTs mildly elevated, lipase > 1,700 - not documented in chart. - CTA abdomen notes peripancreatic inflammation, abdominal US completed and results pending. - cont Nacl 0.9% @ 100mL/hr, zofran 4mg Q4H PRN, Dilaudid 1 mg IV Q4H PRN, Protonix 40mg IV QD - keep patient NPO and advance diet as tolerated , vitals Q8H, repeat lytes, cbc in am. BISAP score 0 Status: Acute Discharge Diagnosis: Pancreatitis type: unspecified pancreatitis type Acute pancreatitis complication: unspecified Qualified Code(s): K85.90 - Acute pancreatitis without necrosis or infection, unspecified Base Code: K85.90 - ACUTE PANCREATITIS WITHOUT NECROSIS OR INFECTION, UNSP (2) Hypertension Plan: - BP 152/97 this evening. - patient to resume Lisinopril 40mg and start Norvasc 5mg Status: Acute Discharge Diagnosis: Hypertension type: essential hypertension Qualified Code(s): I10 - Essential (primary) hypertension Base Code: I10 - ESSENTIAL (PRIMARY) HYPERTENSION (3) Postsurgical cardiac pacemaker in situ Plan: - recent pacemaker implantation in [facility] s/p revisions x 2. - pt completed 10 day course of abx w/ improvement in pain and swelling of implantation site. - ECG shows paced rhythm, pt on telemetry monitoring, troponins negative Status: Acute Base Code: Z95.0 - PRESENCE OF CARDIAC PACEMAKER (4) Full code status Plan: FULL CODE Status: Acute Base Code: Z78.9 - OTHER SPECIFIED HEALTH STATUS (5) Tobacco abuse Status: Acute Base Code: Z72.0 - TOBACCO USE - Disposition D/C tomorrow if pt tolerates diet tonight/morning. - Hospitalization Course Disposition: Home, Self-Care Hospital Course: 56 y/o male who presented with acute onset epigastric and lower thoracic pain. Initial workup was not suggestive of ACS but labs revealed elevated lipase with mild elevation in liver enzymes. The patient has remote hx of ETOH abuse and has no history of gallstones and US abdomen was negative for CBD dilatation or cholethiasis. The patient was started on IV dilauadid, fluids and made NPO. Diet was advanced the following morning and the patient tolerated full liquids and eventually a regular diet w/o any exacerbation of pain, nausea or vomiting. In addition, to his primary diagnosis the patient had hypertensive urgency and was started on his home dose of Lisinopril, with addition of Norvasc for control of BP. Abnormal Labs: Abnormal Lab Results 01/25/17 01/26/17 01/26/17 Range/Units Unknown 06:30 06:30 MCH 33.3 H (27-33) pg MPV 10.8 H (7.4-10.4) fl Monocytes % 10.9 H (0-9) % Calcium 8.4 L (8.6-10.0) mg/dL AST 60 H (10.0-50.0) U/L ALT 87 H (<41) U/L Lipase 542 H (13-60) U/L Condition at Discharge: (2) Stable Discharge Medications - Discharge Medications Prescriptions: Amlodipine Besylate [Norvasc] 5 mg PO DAILY PRN #30 tab PRN Reason: hypertension Home Medications: Ambulatory Orders Aspirin 81 mg PO DAILY 12/30/16 [Last Taken 01/13/17] Amlodipine Besylate [Norvasc] 5 mg PO DAILY PRN #30 tab 01/26/17 [Last Taken Unknown] Discharge Plan - Discharge Instructions Activity at Discharge: Resume Usual Activities As Tolerated Diet at Discharge: Regular Diet Instructions: Pancreatitis (DC) Quality Measures - Quality Measures Quality Measures: Documentation of Current Medications in Medical Record, Screening for High Blood Pressure and F/U Documented - Current Medications Quality Measure: Measure #130: Documentation of Current Medications Documentation of Current Medications: <Current Medications Documented/Reviewed> [G8427] - Blood Pressure Screening Quality Measure: Screening for High Blood Pressure and Follow-Up Documented Does Patient Have Any of the Following: Active Dx of HTN Blood Pressure Classification: Hypertensive Reading Systolic Measurement: 141 Diastolic Measurement: 105 Screening for High Blood Pressure: Patient Exclusion, Hx of HTN [G9744] - Elder Abuse Suspicion Index EASI Reference Information: Joaquin PHILLIPS, Anil C, Kenny D, Tania Negro.Development and validation of a tool to assist physicians identification of elder abuse: The Elder Abuse Suspicion Index (EASI ). Journal of Elder Abuse and Neglect, 2008; 20 (3): 276-300.
== END 2017-01-26 15:30 | disposition home or self-care (01) ==
LOC: ER 09:00 → MEDSURG 15:49 → INTOOBSV 15:49
PROVIDERS: ADMIT Internal Medicine; ATTEND Internal Medicine
DX: K85.90 Acute pancreatitis without necrosis or infection, unspecified (principal); F17.210 Nicotine dependence, cigarettes, uncomplicated; I10 Essential (primary) hypertension; Z86.19 Personal history of other infectious and parasitic diseases; I16.0 Hypertensive urgency; Z95.0 Presence of cardiac pacemaker
CPT/HCPCS: 99285; 96376; 96374; 96375; 99284; 82550; 83690 ×2; 85025 ×2; 85730; 85610; 80076; 82553; 84484 ×2; 80048 ×2; 85379; 76700; 71275; 94762; 94760; 93005 ×2; 93010; G0378 ×2; Q9967; J2405; J1170; 99217; 99220; C9113

== ENCOUNTER 2017-01-29 04:46 | Observation (INO) | payer MEDICAID ==
[2017-01-29] MEDS ORDERED: ONDANSETRON HCL IV 4 MG/2 ML VIAL IV ONE (05:01)
[2017-01-29] MEDS ORDERED: 0.9 % SODIUM CHLORIDE 1,000 ML BAG IV ONE (05:01)
[2017-01-29] MEDS ORDERED: HYDROMORPHONE HCL 1MG/ML **SYRINGE IVP ONE (05:02)
[2017-01-29 05:09] LABS: BASO % 0.6 % (0-6); EOS % 3.6 % (0-6); HEMATOCRIT 48.2 % (42.0-52.0); HEMOGLOBIN 17.3 gm/dl (14.0-18.0); LYMPH % 32.2 % (16-45); MEAN CELL VOLUME 92.9 fl (81-97); MEAN CORPUSCULAR HEMOGLOBIN 33.3 pg (27-33); MEAN CORPUSCULAR HGB CONC 35.9 g/dl (32-36); MEAN PLATELET VOLUME 11.4 fl (7.4-10.4); MONO % 11.6 % (0-9); PLATELET COUNT 174 K/uL (130-400); RED BLOOD COUNT 5.19 M/uL (4.40-5.70); RED CELL DISTRIBUTION WIDTH 12.8 % (11.5-14.5); WHITE BLOOD COUNT W/O DIFF 9.4 K/uL (4.2-12.2)
--- NOTE | 2017-01-29 05:09 | Emergency Department Record ---
History of Present Illness - General Chief complaint: Pain Stated complaint: UNCONTROLLABLE PAIN Time Seen by Provider: 01/29/17 04:53 Source: Patient, Family Mode of Arrival: Ambulatory Limitations: No limitations - History of Present Illness Initial comments: 56 yo male presents with a return of epigastric abdominal pain. He was discharged on 01/26 with a diagnosis of acute pancreatitis with elevated lipase and CT scan that was consistent with acute pancreatitis. He states he was doing well at the time of DC. His diet had been advanced to regular diet without pain. No fever. No vomiting. No diarrhea. No blood in the stools. PCP is Dr Harris. The patient denies any alcohol for 4 months. MD Complaint: Abdominal Pain Onset/Timin -: Days(s) Severity scale (1-10): 8 Quality: Sharp Consistency: Constant Improves with: Nothing - Related Data Previous Rx's Medication Instructions Recorded Amlodipine Besylate [Norvasc] 5 mg PO DAILY PRN #30 tab 01/26/17 Allergies Allergy/AdvReac Type Severity Reaction Status Date / Time acetaminophen [From Vicodin] AdvReac Intermediate VOMITING Verified 01/12/17 09: 15 hydrocodone bitartrate AdvReac Intermediate VOMITING Verified 01/12/17 09:15 [From Vicodin] morphine AdvReac Intermediate VOMITING Verified 01/12/17 09:15 Penicillins AdvReac VOMITING Verified 01/12/17 09:15 Travel Screening - Travel/Exposure Within Last 30 Days Have you traveled within the last 30 days?: No Review of Systems Constitutional: Denies: Chills, Fever, Malaise, Weakness Eyes: Denies: Eye discharge ENT: Denies: Congestion, Throat pain Respiratory: Denies: Cough, Dyspnea, Hemoptysis, Stridor, Wheezes Cardiovascular: Denies: Chest pain, Palpitations, Syncope Endocrine: Denies: Fatigue, Polydipsia, Polyuria Gastrointestinal: Reports: As per HPI, Abdominal pain, Nausea. Denies: Diarrhea , Vomiting Genitourinary: Denies: Dysuria, Frequency, Hematuria Musculoskeletal: Denies: Arthralgia, Back pain, Myalgia, Neck pain Skin: Denies: Bruising, Change in color, Rash Neurological: Denies: Headache, Numbness, Weakness Psychiatric: Denies: Anxiety Hematological/Lymphatic: Denies: Blood Clots, Easy bleeding, Easy bruising, Swollen glands Past Medical History - SOCIAL HISTORY Smoking Status: Current every day smoker Alcohol Use: None Drug Use: None - RESPIRATORY Hx Respiratory Disorders: No - CARDIOVASCULAR Hx Cardio Disorders: Yes Hx Abnormal EKG: Yes Hx Chest Pain: Yes Hx Hypertension: Yes Hx Irregular Heartbeat: Yes Hx Palpitations: Yes Hx Pacemaker/Defib: Yes (recent [employer] device implanted ) - NEURO Hx Neuro Disorders: Yes Hx Headaches: Yes (chronic) - GI Hx GI Disorders: Yes Hx Reflux: Yes Hx Hepatitis/Jaundice: Yes (Hep C) Hx Pancreatitis: Yes (new dx in ER) - Hx Genitourinary Disorders: No - ENDOCRINE Hx Endocrine Disorders: No Hx Diabetes: No Hx Thyroid Disease: No - MUSCULOSKELETAL Hx Musculoskeletal Disorders: Yes - PSYCH Hx Psych Problems: No - HEMATOLOGY/ONCOLOGY Hx Hematology/Oncology Disorders: No Hx Anemia: No Hx Blood Disorders: No Hx Bruising: No Hx Cancer: No Family Medical History Any Significant Family History?: Yes Hx Cancer: Mother Hx Heart Disease: Father Hx HTN: Mother Hx Stroke: Mother Physical Exam - General General Appearance: Alert, Oriented x3, Cooperative, No acute distress Limitations: No limitations - Head Head exam: Normal inspection - Eye Eye exam: Normal appearance. negative: Conjunctival injection, Periorbital swelling - ENT ENT exam: Normal exam, Mucous membranes moist Ear exam: Normal external inspection Nasal Exam: Normal inspection Mouth exam: Normal external inspection - Neck Neck exam: Normal inspection, Full ROM. negative: Tenderness - Respiratory Respiratory exam: Normal lung sounds bilaterally. negative: Respiratory distress, Rhonchi, Stridor, Wheezes - Cardiovascular Cardiovascular Exam: Regular rate, Normal rhythm, Normal heart sounds - GI/Abdominal GI/Abdominal exam: Soft, Tenderness (tender in the epigastrium) - Rectal Rectal exam: Deferred - exam: Deferred - Extremities Extremities exam: Normal inspection, Full ROM, Normal capillary refill. negative: Tenderness - Back Back exam: Reports: Normal inspection. Denies: CVA tenderness (R), CVA tenderness (L), Paraspinal tenderness - Neurological Neurological exam: Alert, Normal gait, Oriented X3 - Psychiatric Psychiatric exam: Normal affect, Normal mood - Skin Skin exam: Dry, Intact, Normal color, Warm Course Vital Signs 01/29/17 04:53 Temperature 97.7 F Pulse Rate [ 78 Pulse Ox Probe] Respiratory 20 Rate Blood Pressure 147/110 [Left Arm] Pulse Ox 96 - Reevaluation(s) Reevaluation #1: The EMR was reviewed including recent H and P as well as the DC summary The CTA of the chest and US were reviewed 01/29/17 05:09 01/29/17 05:11 There are not acute changes on the CBC. 01/29/17 05:33 The CMP was reviewed Mild increase in LFT's with AST of 57 and ALT 82 of and normal alkalne phosphatase. The Lipase is elevated at greater than 492 01/29/17 05:34 Medical Decision Making - Lab Data Result diagrams: 01/29/17 05:03 01/29/17 05:03 Disposition Disposition: Admit Clinical Impression: Pancreatitis, acute Qualifiers: Pancreatitis type: unspecified pancreatitis type Acute pancreatitis complication: unspecified Qualified Code(s): K85.90 - Acute pancreatitis without necrosis or infection, unspecified Disposition: Still a Patient at [facility] Decision to Admit: Admit from ER Decision to Admit Date: 01/29/17 Decision to Admit Time: 05:36 Condition: (1) Good Forms: Patient Portal Access Time of Disposition: 05:36 Quality - Quality Measures Quality Measures: N/A - Blood Pressure Screening Does Patient Have Any of the Following: No Blood Pressure Classification: Hypertensive Reading Systolic Measurement: 147 Diastolic Measurement: 110 Screening for High Blood Pressure: < Pre-Hypertensive BP, F/U Documented > [ G8950] Pre-Hypertensive Follow-up Interventions: Referral to alternative/primary care provider.
[2017-01-29 05:23] LABS: INR 1.18; PROTHROMBIN TIME (PATIENT) 12.8 SECONDS (9.5-12.1)
[2017-01-29 05:26] LABS: ALBUMIN 3.9 g/dL (4.0-5.0); ALKALINE PHOSPHATASE 92 U/L (40-129); ALT/SGPT 82 U/L (<41); AST/SGOT 57 U/L (10.0-50.0); BLOOD UREA NITROGEN 17 mg/dL (6-20); CREATININE 0.8 mg/dL (0.7-1.2); EST GLOMERULAR FILTRATION RATE > 60 mL/min; GLUCOSE,RANDOM 113 mg/dL (74-109); TOTAL PROTEIN 7.2 g/dL (6.6-8.7)
[2017-01-29 05:32] LABS: BILIRUBIN,DIRECT < 0.2 mg/dL (0-0.3)
[2017-01-29 05:38] LABS: LIPASE 589 U/L (13-60)
[2017-01-29] MEDS ORDERED: AMLODIPINE BESYLATE 5MG TAB PO PRN (06:08)
[2017-01-29] MEDS ORDERED: ATORVASTATIN 20 MG TABLET PO SCH (06:08)
[2017-01-29] MEDS: HYDROMORPHONE HCL 1MG/ML **SYRINGE IVP PRN ×4 (06:45→19:51)
[2017-01-29] MEDS: 0.9 % SODIUM CHLORIDE 1000ML 1,000 ML IV PRN ×2 (06:46→18:19)
--- NOTE | 2017-01-29 09:05 | History & Physical ---
History of Present Illness - Date of Service Date of Service for History & Physical: 01/29/17 - History of Present Illness Admitting Diagnosis: Acute pancreatitis History of Present Illness: Mr. Bone is 56 y/o male who presents with epigastric pain which is a recurrence of symptoms after being discharged about 2 days ago. He was admitted with a diagnosis of acute pancreatitis with unknown etiology and discharged the followin day after resolution of symptoms and advancement of diet. He says that he went home and didn't have any new symptoms until yesterday when this sharp, stabbing pain began again. He denies nausea, vomiting, headaches, fevers/chills or diarrhea. Travel Screening - Travel/Exposure Within Last 30 Days Have you traveled within the last 30 days?: No - Travel/Exposure Within Last Year Have you traveled outside the [place] in the last year?: No - Additonal Travel Details Have you been exposed to anyone with a communicable illness?: No Review of Systems Constitutional: Denies: Chills, Fever, Malaise, Weakness Eyes: Denies: Eye discharge ENT: Denies: Congestion, Throat pain Respiratory: Denies: Cough, Dyspnea, Hemoptysis, Stridor, Wheezes Cardiovascular: Denies: Chest pain, Palpitations, Syncope Endocrine: Denies: Fatigue, Polydipsia, Polyuria Gastrointestinal: Reports: As per HPI, Abdominal pain, Nausea. Denies: Diarrhea , Vomiting Genitourinary: Denies: Dysuria, Frequency, Hematuria Musculoskeletal: Denies: Arthralgia, Back pain, Myalgia, Neck pain Skin: Denies: Bruising, Change in color, Rash Neurological: Denies: Headache, Numbness, Weakness Psychiatric: Denies: Anxiety Hematological/Lymphatic: Denies: Blood Clots, Easy bleeding, Easy bruising, Swollen glands Past Medical History - SOCIAL HISTORY Smoking Status: Current every day smoker Alcohol Use: None Alcohol Use Comment: no etoh for past four months Drug Use: None - RESPIRATORY Hx Respiratory Disorders: No Hx Asthma: No Hx Bronchitis: No Hx COPD: No Hx Dyspnea: No Hx Pneumonia: No Hx Pulmonary Embolism: No Hx Sleep Apnea: No Hx Tuberculosis: No Hx of CPAP: No - CARDIOVASCULAR Hx Cardio Disorders: Yes Hx Abnormal EKG: Yes Hx Chest Pain: Yes Hx Hypertension: Yes Hx Irregular Heartbeat: Yes Hx Palpitations: Yes Hx Pacemaker/Defib: Yes (recent [employer] device implanted ) - NEURO Hx Neuro Disorders: Yes Hx Headaches: Yes (chronic) - GI Hx GI Disorders: Yes Hx Reflux: Yes Hx Hepatitis/Jaundice: Yes (Hep C) Hx Pancreatitis: Yes (new dx in ER) - Hx Genitourinary Disorders: No Hx Bladder Problem: No Hx Dialysis: No Hx Kidney Stones: No Hx Prostate Problems: No Hx Renal Disease: No Hx UTI: No - ENDOCRINE Hx Endocrine Disorders: No Hx Diabetes: No Hx Thyroid Disease: No - MUSCULOSKELETAL Hx Musculoskeletal Disorders: Yes Hx Arthritis: No - PSYCH Hx Psych Problems: No - HEMATOLOGY/ONCOLOGY Hx Hematology/Oncology Disorders: No Hx Anemia: No Hx Blood Disorders: No Hx Bruising: No Hx Cancer: No Family Medical History Any Significant Family History?: Yes Hx Cancer: Mother Hx Heart Disease: Father Hx HTN: Mother Hx Stroke: Mother H&P Meds/Allergies - Allergies Allergies: Allergies Allergy/AdvReac Type Severity Reaction Status Date / Time acetaminophen [From Vicodin] AdvReac Intermediate VOMITING Verified 01/12/17 09: 15 hydrocodone bitartrate AdvReac Intermediate VOMITING Verified 01/12/17 09:15 [From Vicodin] morphine AdvReac Intermediate VOMITING Verified 01/12/17 09:15 Penicillins AdvReac VOMITING Verified 01/12/17 09:15 - Home Medications Previous Rx's Medication Instructions Recorded Amlodipine Besylate [Norvasc] 5 mg PO DAILY PRN #30 tab 01/26/17 - Active Medications Active Medications: Current Medications Amlodipine Besylate (Norvasc) 5 mg PO DAILY PRN PRN Reason: hypertension Aspirin (Aspirin Chewable) 81 mg PO DAILY [facility] Atorvastatin Calcium (Lipitor) 20 mg PO DAILY [facility] Hydromorphone HCl (Dilaudid) 1 mg IVP Q4HR PRN PRN Reason: Abdominal Pain Last Admin: 01/29/17 06:45 Dose: 1 mg Sodium Chloride () 1,000 mls @ 100 mls/hr IV .Q10H PRN PRN Reason: LARGE VOLUME IV Last Admin: 01/29/17 06:46 Dose: 100 mls/hr Lisinopril (Zestril) 40 mg PO DAILY [facility] Ondansetron HCl (Zofran) 4 mg IVP Q4H PRN PRN Reason: NAUSEA Pantoprazole Sodium (Protonix Iv) 40 mg IV DAILY [facility] Physical Exam - Vital Signs Vital Signs: Vital Signs - Last 24 Hrs Temp Pulse Resp BP Pulse Ox 01/29/17 06:10 60 18 01/29/17 06:08 97.6 F 61 18 135/81 95 - General General Appearance: Alert, Oriented x3, Cooperative, No acute distress Limitations: No limitations - Head Head exam: Normal inspection - Eye Eye exam: Normal appearance. negative: Conjunctival injection, Periorbital swelling - ENT ENT exam: Normal exam, Mucous membranes moist Ear exam: Normal external inspection Nasal Exam: Normal inspection Mouth exam: Normal external inspection - Neck Neck exam: Normal inspection, Full ROM. negative: Tenderness - Respiratory Respiratory exam: Normal lung sounds bilaterally. negative: Respiratory distress, Rhonchi, Stridor, Wheezes - Cardiovascular Cardiovascular Exam: Regular rate, Normal rhythm, Normal heart sounds - GI/Abdominal GI/Abdominal exam: Soft, Tenderness (tender in the epigastrium) - Rectal Rectal exam: Deferred - exam: Deferred - Extremities Extremities exam: Normal inspection, Full ROM, Normal capillary refill. negative: Tenderness - Back Back exam: Reports: Normal inspection. Denies: CVA tenderness (R), CVA tenderness (L), Paraspinal tenderness - Neurological Neurological exam: Alert, Normal gait, Oriented X3 - Psychiatric Psychiatric exam: Normal affect, Normal mood - Skin Skin exam: Dry, Intact, Normal color, Warm Results - Labs Result Diagrams: 01/29/17 05:03 01/29/17 05:03 VTE H&P Assessment - Risk for VTE Risk for VTE: No Risk Level: Very Low Risk Assessment Date: 01/29/17 Risk Assessment Time: 09:04 VTE Orders Placed or Will Be Placed: No VTE Reason for No Prophylaxis: Not Indicated (patient is ambulatory ) Plan - Inpatient Certification Inpatient Certification: Admit to inpatient care: Based on my medical assessment, after consideration of patient's risk factors (age, co-morbidities and patient presenting symptoms and acuity), I expect that this patient will remain in the hospital greater than or equal to two midnights and that the services needed warrant inpatient care because: Estimated length of stay: 24hours The patient may reasonably be expected to be discharged or transferred to a hospital within 96 hours after admission to [facility]. - Detailed Diagnosis and Plan (1) Pancreatitis, acute Plan: - pt has recent diagnosis of acute pancreatitis w/ lipase > 1700 w/o clear etiology. - labs: WBC 9.7, lipase 589, mild elevation on LFTs. US abdomen negative for cholethiasis or CBD obstruction - patient started on IVF Nacl 0.9% @ 100mL/hr, IV diluadid 1mg Q4PRN, Zofran 4mg Q4 PRN , clear liquid diet to advance as tolerated. Protonix 40mg IV QD - will consult GI for further recommendations Current Visit: Yes Status: Acute Qualifiers: Pancreatitis type: unspecified pancreatitis type Acute pancreatitis complication: unspecified Qualified Code(s): K85.90 - Acute pancreatitis without necrosis or infection, unspecified Base Code: K85.90 - ACUTE PANCREATITIS WITHOUT NECROSIS OR INFECTION, UNSP (2) Hypertension Plan: - BP stable at 135/81 - pt to continue on Norvasc 5mg QD , Lisinopril 40mg QD , ASA 81 and Atrovastatin 40mg QD Current Visit: No Status: Acute Qualifiers: Base Code: I10 - ESSENTIAL (PRIMARY) HYPERTENSION (3) Full code status Plan: FULL CODE Current Visit: No Status: Acute Base Code: Z78.9 - OTHER SPECIFIED HEALTH STATUS - Disposition Will discuss further with GI regarding further w/o, possibly outpatient upper EGD. Continue pain control with IV meds and advance diet today as tolerated. Likely d/c in the am.
[2017-01-29] MEDS: ASPIRIN 81 MG CHEWABLE TABLET PO SCH (09:29)
[2017-01-29] MEDS: ATORVASTATIN 20 MG TABLET PO SCH (09:29)
[2017-01-29] MEDS: PANTOPRAZOLE SODIUM IV 40 MG VIAL IV SCH (09:29)
[2017-01-29] MEDS: LISINOPRIL 20 MG TABLET PO SCH (09:29)
[2017-01-29] MEDS: ONDANSETRON HCL IV 4 MG/2 ML VIAL IVP PRN ×2 (13:15→19:51)
[2017-01-29] MEDS ORDERED: ZOLPIDEM TARTRATE 5 MG TABLET PO ONE (22:00)
[2017-01-30] MEDS: ONDANSETRON HCL IV 4 MG/2 ML VIAL IVP PRN ×3 (00:15→11:15)
[2017-01-30] MEDS: HYDROMORPHONE HCL 1MG/ML **SYRINGE IVP PRN ×3 (00:16→11:15)
[2017-01-30] MEDS: 0.9 % SODIUM CHLORIDE 1000ML 1,000 ML IV PRN ×2 (02:56→14:36)
[2017-01-30] MEDS: LISINOPRIL 20 MG TABLET PO SCH (09:37)
[2017-01-30] MEDS: PANTOPRAZOLE SODIUM IV 40 MG VIAL IV SCH (09:38)
[2017-01-30] MEDS: ASPIRIN 81 MG CHEWABLE TABLET PO SCH (09:38)
[2017-01-30] MEDS: ATORVASTATIN 20 MG TABLET PO SCH (09:38)
--- NOTE | 2017-01-30 17:03 | Discharge Summary ---
Providers Discharge Summary Date: 01/30/17 Date of admission: 01/29/17 05:53 Expected Date of Discharge: 01/30/17 Attending physician: ANNE NOYOLA Consults: Consult Orders 01/29/17 14:19 Consult NOW Consulting Provider: FERMIN BARRON Physician Instructions: mgi Reason For Exam: pancreatitis Physical Exam - Vital Signs Vital Signs: Vital Signs - Last 24 Hrs Temp Pulse Resp BP Pulse Ox 01/30/17 09:00 18 01/30/17 08:33 97.9 F 60 18 133/96 94 L 01/30/17 04:00 61 18 136/95 99 01/29/17 20:35 16 01/29/17 20:00 97.7 F 60 18 136/91 98 - General General Appearance: Alert, Oriented x3, Cooperative, No acute distress Limitations: No limitations - Head Head exam: Normal inspection - Eye Eye exam: Normal appearance. negative: Conjunctival injection, Periorbital swelling - ENT ENT exam: Normal exam, Mucous membranes moist Ear exam: Normal external inspection Nasal Exam: Normal inspection Mouth exam: Normal external inspection - Neck Neck exam: Normal inspection, Full ROM. negative: Tenderness - Respiratory Respiratory exam: Normal lung sounds bilaterally. negative: Respiratory distress, Rhonchi, Stridor, Wheezes - Cardiovascular Cardiovascular Exam: Regular rate, Normal rhythm, Normal heart sounds - GI/Abdominal GI/Abdominal exam: Soft, Tenderness (tender in the epigastrium) - Rectal Rectal exam: Deferred - exam: Deferred - Extremities Extremities exam: Normal inspection, Full ROM, Normal capillary refill. negative: Tenderness - Back Back exam: Reports: Normal inspection. Denies: CVA tenderness (R), CVA tenderness (L), Paraspinal tenderness - Neurological Neurological exam: Alert, Normal gait, Oriented X3 - Psychiatric Psychiatric exam: Normal affect, Normal mood - Skin Skin exam: Dry, Intact, Normal color, Warm Hospitalization - Hospitalization Admission Diagnosis: Acute pancreatitis - Problem List/Discharge Diagnosis (1) Pancreatitis, acute Current Visit: Yes Status: Acute Discharge Diagnosis: Pancreatitis type: unspecified pancreatitis type Acute pancreatitis complication: unspecified Qualified Code(s): K85.90 - Acute pancreatitis without necrosis or infection, unspecified Base Code: K85.90 - ACUTE PANCREATITIS WITHOUT NECROSIS OR INFECTION, UNSP Comment: 01/30- pt has recent diagnosis of acute pancreatitis w/ lipase > 1700 w/o clear etiology. - upon admission- labs: WBC 9.7, lipase 589, mild elevation on LFTs. US abdomen negative for cholethiasis or CBD obstruction - patient will continue full liquid/soft diet for 2-3 more days as tolerated. discussed following a low fat diet. - christal Simmons sent to pharmacy. - unable to see GI during admission. Will place outpatient referral. - patient agree's to contact our office to schedule a follow up visit. - he will return in the meantime re any new or worsening symptoms (i.e fever, chills, n/v, worsening abdominal pain) (2) Full code status Current Visit: No Status: Acute Base Code: Z78.9 - OTHER SPECIFIED HEALTH STATUS Comment: 01/30- pt remained full code (3) Hypertension Current Visit: No Status: Acute Discharge Diagnosis: Base Code: I10 - ESSENTIAL (PRIMARY) HYPERTENSION Comment: 01/30- well controlled. continue Lisinopril 40 mg qd. - Hospitalization Course Disposition: Home, Self-Care Hospital Course: Mr. Bone is 56 y/o male who presents with epigastric pain which is a recurrence of symptoms after being discharged about 2 days ago. He was admitted with a diagnosis of acute pancreatitis with unknown etiology and discharged the followin day after resolution of symptoms and advancement of diet. He says that he went home and didn't have any new symptoms until yesterday when this sharp, stabbing pain began again. He denies nausea, vomiting, headaches, fevers/chills or diarrhea. 01/30- patient lying in bed comfortably. states his pain has improved signficantly. normal GI/ function. ambulating the room. tolerating CLD and would really like to increase his diet. states he's slightly nauseous though believes it's related to hunger. no vomiting. afebrile. does not feel he needs to be on IV pain medication any longer. states he's very anxious to get home. he's willing to wait to see how he tolerates a full liquid/soft diet. 1600- nursing contact me by phone stating patient tolerated lunch well. has not required pain medication since this morning. no longer nauseous. very anxious to get home. Condition at Discharge: (1) Good Discharge Medications - Discharge Medications Prescriptions: Ondansetron [Zofran Odt] 4 mg PO Q8H PRN #12 tab.rapdis PRN Reason: Nausea Home Medications: Ambulatory Orders Aspirin 81 mg PO DAILY 12/30/16 [Last Taken 01/13/17] Ondansetron [Zofran Odt] 4 mg PO Q8H PRN #12 tab.rapdis 01/30/17 [Last Taken Unknown] Discharge Plan - Discharge Instructions Activity at Discharge: Increase Activity as Tolerated Diet at Discharge: Other (full liquid/soft diet x 3 days, disucussed low fat diet. ) Quality Measures - Quality Measures Quality Measures: Documentation of Current Medications in Medical Record, Screening for High Blood Pressure and F/U Documented - Current Medications Quality Measure: Measure #130: Documentation of Current Medications Documentation of Current Medications: <Current Medications Documented/Reviewed> [G8427] - Blood Pressure Screening Quality Measure: Screening for High Blood Pressure and Follow-Up Documented Does Patient Have Any of the Following: No Blood Pressure Classification: Hypertensive Reading Systolic Measurement: 122 Diastolic Measurement: 91 Screening for High Blood Pressure: Patient Exclusion, Hx of HTN [G9744] - Elder Abuse Suspicion Index EASI Reference Information: Joaquin PHILLIPS, Anil C, Kenny D, Tania Negro.Development and validation of a tool to assist physicians identification of elder abuse: The Elder Abuse Suspicion Index (EASI ). Journal of Elder Abuse and Neglect, 2008; 20 (3): 276-300.
== END 2017-01-30 18:00 | disposition home or self-care (01) ==
LOC: ER 04:46 → MEDSURG 05:53 → INTOOBSV 05:53
PROVIDERS: ADMIT Internal Medicine; ATTEND Internal Medicine
DX: K85.90 Acute pancreatitis without necrosis or infection, unspecified (principal); Z86.19 Personal history of other infectious and parasitic diseases; F17.200 Nicotine dependence, unspecified, uncomplicated; Z95.0 Presence of cardiac pacemaker; I10 Essential (primary) hypertension; Z78.9 Other specified health status
CPT/HCPCS: 99285 ×2; 96374; 96375; 96361; 83690; 85025; 85730; 85610; 80076; 80048; G0378 ×2; G0480; J2405 ×2; J1170 ×2; 80320; 99217; 99220; C9113; J7030

== ENCOUNTER 2017-03-05 14:31 | Emergency (ER) | payer MEDICAID ==
[2017-03-05 15:46] LABS: BASO % 0.9 % (0-6); EOS % 5.9 % (0-6); HEMATOCRIT 47.3 % (42.0-52.0); HEMOGLOBIN 16.7 gm/dl (14.0-18.0); LYMPH % 41.2 % (16-45); MEAN CELL VOLUME 94.2 fl (81-97); MEAN CORPUSCULAR HEMOGLOBIN 33.3 pg (27-33); MEAN CORPUSCULAR HGB CONC 35.3 g/dl (32-36); MEAN PLATELET VOLUME 11.2 fl (7.4-10.4); PLATELET COUNT 162 K/uL (130-400); RED BLOOD COUNT 5.02 M/uL (4.40-5.70); RED CELL DISTRIBUTION WIDTH 12.5 % (11.5-14.5); WHITE BLOOD COUNT W/O DIFF 6.4 K/uL (4.2-12.2)
--- NOTE | 2017-03-05 15:59 | Emergency Department Record ---
History of Present Illness - General Chief complaint: Pain Stated complaint: PAIN PACEMAKER/LT ARM PAIN Time Seen by Provider: 03/05/17 15:10 Source: Patient Mode of Arrival: Ambulatory Limitations: No limitations - History of Present Illness Initial comments: pt is c/o pain around his pacer. he had it put in in [place]. he is trying to get established w a board layer here Complaint: Other Onset/Timin -: Days(s) History of Same: No Radiation: Proximal Severity scale (1-10): 7 Quality: Aching Consistency: Constant Improves with: Nothing Worsens with: Nothing Associated Symptoms: Denies other symptoms - Related Data Previous Rx's Medication Instructions Recorded Ondansetron [Zofran Odt] 4 mg PO Q8H PRN #12 tab.rapdis 01/30/17 Hydrocodone/Acetaminophen [[place]incoln 1 each PO QID #10 tablet 03/05/17 5-325 Tablet] Allergies Allergy/AdvReac Type Severity Reaction Status Date / Time acetaminophen [From Vicodin] AdvReac Intermediate VOMITING Verified 03/05/17 14: 58 hydrocodone bitartrate AdvReac Intermediate VOMITING Verified 03/05/17 14:58 [From Vicodin] morphine AdvReac Intermediate VOMITING Verified 03/05/17 14:58 Penicillins AdvReac VOMITING Verified 03/05/17 14:58 Travel Screening - Travel/Exposure Within Last 30 Days Have you traveled within the last 30 days?: No Review of Systems Reviewed: No additional complaints except as noted below Constitutional: Reports: As per HPI. Denies: Chills, Fever, Malaise, Night sweats, Weakness, Weight change Eyes: Reports: As per HPI. Denies: Eye discharge, Eye pain, Photophobia, Vision change ENT: Reports: As per HPI. Denies: Congestion, Dental pain, Ear pain, Epistaxis , Hearing loss, Throat pain Respiratory: Reports: As per HPI. Denies: Cough, Dyspnea, Hemoptysis, Stridor, Wheezes Cardiovascular: Reports: As per HPI. Denies: Arrhythmia, Chest pain, Dyspnea on exertion, Edema, Murmurs, Orthopnea, Palpitations, Paroxysmal nocturnal dyspnea, Rheumatic Fever, Syncope Endocrine: Reports: As per HPI. Denies: Fatigue, Heat or cold intolerance, Polydipsia, Polyuria Gastrointestinal: Reports: As per HPI. Denies: Abdominal pain, Constipation, Diarrhea, Hematemesis, Hematochezia, Melena, Nausea, Vomiting Genitourinary: Reports: As per HPI. Denies: Dysuria, Frequency, Hematuria, Incontinence, Retention, Testicular pain, Testicular mass, Urgency Musculoskeletal: Reports: As per HPI. Denies: Arthralgia, Back pain, Gout, Joint swelling, Myalgia, Neck pain Skin: Reports: As per HPI. Denies: Bruising, Change in color, Change in hair/ nails, Lesions, Pruritus, Rash Neurological: Reports: As per HPI. Denies: Abnormal gait, Confusion, Headache, Numbness, Paresthesias, Seizure, Tingling, Tremors, Vertigo, Weakness Psychiatric: Reports: As per HPI. Denies: Anxiety, Auditory hallucinations, Depression, Homicidal thoughts, Suicidal thoughts, Visual hallucinations Hematological/Lymphatic: Reports: As per HPI. Denies: Anemia, Blood Clots, Easy bleeding, Easy bruising, Swollen glands Past Medical History - SOCIAL HISTORY Smoking Status: Current every day smoker Alcohol Use: None Drug Use: None - RESPIRATORY Hx Respiratory Disorders: No Hx Asthma: No Hx Bronchitis: No Hx COPD: No Hx Dyspnea: No Hx Pneumonia: No Hx Pulmonary Embolism: No Hx Sleep Apnea: No Hx Tuberculosis: No Hx of CPAP: No - CARDIOVASCULAR Hx Cardio Disorders: Yes Hx Abnormal EKG: Yes Hx Chest Pain: Yes Hx Hypertension: Yes Hx Irregular Heartbeat: Yes Hx Palpitations: Yes Hx Pacemaker/Defib: Yes (recent [employer] device implanted ) - NEURO Hx Neuro Disorders: Yes Hx Headaches: Yes (chronic) - GI Hx GI Disorders: Yes Hx Reflux: Yes Hx Hepatitis/Jaundice: Yes (Hep C) Hx Pancreatitis: Yes (new dx in ER) - Hx Genitourinary Disorders: No Hx Bladder Problem: No Hx Dialysis: No Hx Kidney Stones: No Hx Prostate Problems: No Hx Renal Disease: No Hx UTI: No - ENDOCRINE Hx Endocrine Disorders: No Hx Diabetes: No Hx Thyroid Disease: No - MUSCULOSKELETAL Hx Musculoskeletal Disorders: Yes Hx Arthritis: No - PSYCH Hx Psych Problems: No - HEMATOLOGY/ONCOLOGY Hx Hematology/Oncology Disorders: No Hx Anemia: No Hx Blood Disorders: No Hx Bruising: No Hx Cancer: No Family Medical History Any Significant Family History?: Yes Hx Cancer: Mother Hx Heart Disease: Father Hx HTN: Mother Hx Stroke: Mother Physical Exam - General General Appearance: Alert, Oriented x3, Cooperative, Mild distress - Head Head exam: Normal inspection - Eye Eye exam: Normal appearance, PERRL, EOMI Pupils: Normal accommodation - ENT ENT exam: Normal exam, Mucous membranes moist, Normal external ear exam, Normal orophraynx Ear exam: Normal external inspection. negative: External canal tenderness Nasal Exam: Normal inspection. negative: Discharge, Sinus tenderness Mouth exam: Normal external inspection, Tongue normal Teeth exam: Normal inspection. negative: Dental caries Throat exam: Normal inspection. negative: Tonsillar erythema, Tonsillar exudate - Neck Neck exam: Normal inspection, Full ROM. negative: Tenderness - Respiratory Respiratory exam: Normal lung sounds bilaterally, Chest wall tenderness. negative: Respiratory distress - Cardiovascular Cardiovascular Exam: Regular rate, Normal rhythm, Normal heart sounds - GI/Abdominal GI/Abdominal exam: Soft, Normal bowel sounds. negative: Tenderness - Rectal Rectal exam: Deferred - exam: Deferred - Extremities Extremities exam: Normal inspection, Full ROM, Normal capillary refill. negative: Tenderness - Back Back exam: Reports: Normal inspection, Full ROM. Denies: Muscle spasm, Rash noted, Tenderness - Neurological Neurological exam: Alert, CN II-XII intact, Normal gait, Oriented X3 - Psychiatric Psychiatric exam: Normal affect, Normal mood - Skin Skin exam: Dry, Intact, Normal color, Warm Course Vital Signs 03/05/17 14:54 Temperature 97.4 F L Pulse Rate 66 Respiratory 18 Rate Blood Pressure 128/95 Pulse Ox 96 - Reevaluation(s) Reevaluation #1: 03/05/17 17:28 d/w dr giraldo who will talk to board layer tomorrow Medical Decision Making - Lab Data Result diagrams: 03/05/17 15:36 03/05/17 15:17 Lab Results 03/05/17 Range/Units 15:36 WBC 6.4 (4.2-12.2) K/uL RBC 5.02 (4.40-5.70) M/uL Hgb 16.7 (14.0-18.0) gm/dl Hct 47.3 (42.0-52.0) % MCV 94.2 (81-97) fl MCH 33.3 H (27-33) pg MCHC 35.3 (32-36) g/dl RDW 12.5 (11.5-14.5) % Plt Count 162 (130-400) K/uL MPV 11.2 H (7.4-10.4) fl Gran % 43.0 L (47-80) % Lymphocytes % 41.2 (16-45) % Monocytes % 9.0 (0-9) % Eosinophils % 5.9 (0-6) % Basophils % 0.9 (0-6) % Disposition Disposition: Discharge Clinical Impression: Chest wall pain following surgery Disposition: Home, Self-Care Condition: (1) Good Instructions: Chest Wall Pain (ED) Additional Instructions: f/u with family doctor and board layer ashutosh. return sooner if worse Prescriptions: Hydrocodone/Acetaminophen [Lincoln 5-325 Tablet] 1 each PO QID #10 tablet Forms: Patient Portal Access Quality - Quality Measures Quality Measures: N/A - Blood Pressure Screening Does Patient Have Any of the Following: No Blood Pressure Classification: Hypertensive Reading Systolic Measurement: 128 Diastolic Measurement: 95 Screening for High Blood Pressure: < First Hypertensive BP, F/U Documented > [ G8950] First Hypertensive Follow-up Interventions: Follow-up with rescreen GT 1 day and LT 4 weeks.
[2017-03-05 16:02] LABS: ALB/GLOB RATIO 1.1 (1.1-1.8); ALBUMIN 3.6 g/dL (4.0-5.0); ALKALINE PHOSPHATASE 102 U/L (40-129); ALT/SGPT 94 U/L (<41); AST/SGOT 55 U/L (10.0-50.0); BLOOD UREA NITROGEN 14 mg/dL (6-20); CREATINE PHOSPHOKINASE 63 U/L (39-308); CREATININE 0.9 mg/dL (0.7-1.2); EST GLOMERULAR FILTRATION RATE > 60 mL/min; GLUCOSE,RANDOM 110 mg/dL (74-109); TOTAL PROTEIN 6.8 g/dL (6.6-8.7)
[2017-03-05] MEDS ORDERED: HYDROCODONE/APAP 5/325MG TABLET PO ONE (17:30)
--- NOTE | 2017-03-06 09:46 | CT ANGIOGRAM REPORT ---
EXAM: CT ANGIOGRAM OF THE CHEST WITH POST PROCESSING HISTORY: LENIN-PACEMAKER PAIN RADIATING TO THE LEFT ARM FOR FIVE DAYS. PACER IMPLANT ON 12/27/16. TECHNIQUE: CT angiogram of the chest was performed with 85 ml of Omnipaque 350 utilized. Coronal and sagittal maximum intensity projection reformatted images are generated and reviewed. Comparison: CT angiogram of the chest dated 01/25/17. FINDINGS: A multilead transvenous cardiac stimulator remains in place via the left subclavian approach with lead tips in the right atrium, right ventricle, and coronary sinus. The heart remains mildly enlarged. There is moderate to severe atherosclerotic calcification involving the distal left coronary artery and left anterior descending artery. No luminal filling defect is noted in the outflow tract, main arteries, lobar arteries or proximal segmental arteries to suggest acute pulmonary embolic disease. The thoracic aorta is not optimally opacified. There is no evidence of dissection nor focal aneurysmal dilatation. The ascending thoracic aorta is mildly ectatic measuring 3.9 cm in diameter at the level of the right pulmonary artery. The aortic root measures approximately 4 cm and the sinotubular junction 2.9 cm. The proximal descending thoracic aorta measures 3 cm in diameter while distally 2.6 cm. The proximal aortic arch measures 3 cm and the distal arch measures 2.7 cm. The celiac artery and its proximal branches and the superior mesenteric artery appear widely patent. No new mediastinal or hilar mass/lymphadenopathy is seen. Bilateral emphysema is redemonstrated. There is mild dependent atelectasis in each lung base. The central airways are grossly clear. No peripheral soft tissue abnormality is seen. The adrenal glands are not enlarged. No new lytic or blastic bone lesion is seen. There are degenerative changes scattered throughout the visualized spine. IMPRESSION: 1. MULTILEVEL TRANSVENOUS CARDIAC STIMULATOR REMAINS IN PLACE VIA THE LEFT SUBCLAVIAN APPROACH UNCHANGED. 2. MILD CARDIOMEGALY. 3. MODERATE TO SEVERE ATHEROSCLEROTIC CALCIFICATION INVOLVING THE DISTAL ASPECT OF THE LEFT MAIN CORONARY ARTERY AND THROUGHOUT THE LEFT ANTERIOR DESCENDING ARTERY. 4. MILD ECTASIA OF THE ASCENDING THORACIC AORTA REDEMONSTRATED UNCHANGED. NO DEFINITE DISSECTION. 5. BILATERAL EMPHYSEMA. MILD DEPENDENT ATELECTASIS IN EACH LUNG BASE. NOT MENTIONED ABOVE IS MILD BRONCHIAL WALL THICKENING THROUGHOUT THE LUNGS RAISING THE POSSIBILITY OF BRONCHITIS. JOB NUMBER: [id number] [facility]
== END 2017-03-05 17:52 | disposition home or self-care (01) ==
LOC: ER 14:31
DX: G89.18 Other acute postprocedural pain (principal); R07.89 Other chest pain; M79.622 Pain in left upper arm; Z95.0 Presence of cardiac pacemaker; I10 Essential (primary) hypertension; F17.210 Nicotine dependence, cigarettes, uncomplicated
CPT/HCPCS: 99284 ×2; 82550; 85025; 80053; 84484; 71275; 93005; 93010; Q9967

== ENCOUNTER 2017-04-12 20:53 | Emergency (ER) | payer MEDICAID ==
--- NOTE | 2017-04-12 21:23 | Emergency Department Record ---
History of Present Illness - General Chief Complaint: Abdominal Pain Stated Complaint: ABD PAIN AND BACK PAIN Time Seen by Provider: 04/12/17 21:17 Source: Patient - History of Present Illness Initial Comments: Patient has upper abdominal pain which goes straight through to the back and feels like his previous pancreatitis. He had blood drawn just over 12 hours ago for another reason due to having hepatitis C which his GI doctor was ordering. MD Complaint: Abdominal pain - Related Data Previous Rx's Medication Instructions Recorded Tramadol HCl [Ultram] 50 mg PO Q8H #10 tab 04/13/17 Allergies Allergy/AdvReac Type Severity Reaction Status Date / Time acetaminophen [From Vicodin] AdvReac Intermediate VOMITING Verified 03/05/17 14: 58 hydrocodone bitartrate AdvReac Intermediate VOMITING Verified 03/05/17 14:58 [From Vicodin] morphine AdvReac Intermediate VOMITING Verified 03/05/17 14:58 Penicillins AdvReac VOMITING Verified 03/05/17 14:58 Review of Systems Reviewed: No additional complaints except as noted below Constitutional: Reports: As per HPI. Denies: Chills, Fever, Malaise, Night sweats, Weakness, Weight change Eyes: Reports: As per HPI. Denies: Eye discharge, Eye pain, Photophobia, Vision change ENT: Reports: As per HPI. Denies: Congestion, Dental pain, Ear pain, Epistaxis , Hearing loss, Throat pain Respiratory: Reports: As per HPI. Denies: Cough, Dyspnea, Hemoptysis, Stridor, Wheezes Cardiovascular: Reports: As per HPI. Denies: Arrhythmia, Chest pain, Dyspnea on exertion, Edema, Murmurs, Orthopnea, Palpitations, Paroxysmal nocturnal dyspnea, Rheumatic Fever, Syncope Endocrine: Reports: As per HPI. Denies: Fatigue, Heat or cold intolerance, Polydipsia, Polyuria Gastrointestinal: Reports: As per HPI. Denies: Abdominal pain, Constipation, Diarrhea, Hematemesis, Hematochezia, Melena, Nausea, Vomiting Genitourinary: Reports: As per HPI. Denies: Dysuria, Frequency, Hematuria, Incontinence, Retention, Testicular pain, Testicular mass, Urgency Musculoskeletal: Reports: As per HPI. Denies: Arthralgia, Back pain, Gout, Joint swelling, Myalgia, Neck pain Skin: Reports: As per HPI. Denies: Bruising, Change in color, Change in hair/ nails, Lesions, Pruritus, Rash Neurological: Reports: As per HPI. Denies: Abnormal gait, Confusion, Headache, Numbness, Paresthesias, Seizure, Tingling, Tremors, Vertigo, Weakness Psychiatric: Reports: As per HPI. Denies: Anxiety, Auditory hallucinations, Depression, Homicidal thoughts, Suicidal thoughts, Visual hallucinations Hematological/Lymphatic: Reports: As per HPI. Denies: Anemia, Blood Clots, Easy bleeding, Easy bruising, Swollen glands Past Medical History - SOCIAL HISTORY Smoking Status: Current every day smoker Drug Use: None - RESPIRATORY Hx Respiratory Disorders: No Hx Asthma: No Hx Bronchitis: No Hx COPD: No Hx Dyspnea: No Hx Pneumonia: No Hx Pulmonary Embolism: No Hx Sleep Apnea: No Hx Tuberculosis: No Hx of CPAP: No - CARDIOVASCULAR Hx Cardio Disorders: Yes Hx Abnormal EKG: Yes Hx Chest Pain: Yes Hx Hypertension: Yes Hx Irregular Heartbeat: Yes Hx Palpitations: Yes Hx Pacemaker/Defib: Yes (recent [employer] device implanted ) - NEURO Hx Neuro Disorders: Yes Hx Headaches: Yes (chronic) - GI Hx GI Disorders: Yes Hx Reflux: Yes Hx Hepatitis/Jaundice: Yes (Hep C) Hx Pancreatitis: Yes (new dx in ER) - Hx Genitourinary Disorders: No Hx Bladder Problem: No Hx Dialysis: No Hx Kidney Stones: No Hx Prostate Problems: No Hx Renal Disease: No Hx UTI: No - ENDOCRINE Hx Endocrine Disorders: No Hx Diabetes: No Hx Thyroid Disease: No - MUSCULOSKELETAL Hx Musculoskeletal Disorders: Yes Hx Arthritis: No - PSYCH Hx Psych Problems: No - HEMATOLOGY/ONCOLOGY Hx Hematology/Oncology Disorders: No Hx Anemia: No Hx Blood Disorders: No Hx Bruising: No Hx Cancer: No Family Medical History Hx Cancer: Mother Hx Heart Disease: Father Hx HTN: Mother Hx Stroke: Mother Physical Exam - General General Appearance: Alert, Oriented x3, Cooperative, No acute distress - Head Head exam: Normal inspection - Eye Eye exam: Normal appearance, PERRL Pupils: Normal accommodation - ENT ENT exam: Normal exam, Mucous membranes moist, Normal external ear exam, Normal orophraynx, TM's normal bilaterally Ear exam: Normal external inspection. negative: External canal tenderness Nasal Exam: Normal inspection. negative: Discharge, Sinus tenderness Mouth exam: Normal external inspection, Tongue normal Teeth exam: Normal inspection. negative: Dental caries Throat exam: Normal inspection. negative: Tonsillar erythema, Tonsillar exudate - Neck Neck exam: Normal inspection, Full ROM. negative: Tenderness - Respiratory Respiratory exam: Normal lung sounds bilaterally. negative: Respiratory distress - Cardiovascular Cardiovascular Exam: Regular rate, Normal rhythm, Normal heart sounds - GI/Abdominal GI/Abdominal exam: Soft, Normal bowel sounds, Tenderness (tender across upper abdomen on palpation) - Rectal Rectal exam: Deferred - exam: Deferred - Extremities Extremities exam: Normal inspection, Full ROM, Normal capillary refill. negative: Tenderness - Back Back exam: Reports: Normal inspection, Full ROM. Denies: CVA tenderness (R), CVA tenderness (L), Muscle spasm, Rash noted, Tenderness - Neurological Neurological exam: Alert, Normal gait, Oriented X3, Reflexes normal - Psychiatric Psychiatric exam: Normal affect, Normal mood - Skin Skin exam: Dry, Intact, Normal color, Warm Course Vital Signs 04/12/17 21:12 Temperature 97.5 F L Pulse Rate [ 64 Pulse Ox Probe] Respiratory 18 Rate Blood Pressure 147/83 [Left Arm] Pulse Ox 98 - Reevaluation(s) Reevaluation #1: Patient is feeling better after dilaudid, stating his pain is about 3/10 now. Is finishing his contrast and will go to CT scan in a few minutes. Lab results reviewed and patient understand he again has pancreatitis on his blood work. 04/12/17 23:34 04/13/17 00:58 PAtient is refusing admission. Insists he go home to bed. Wishes one more medication prior to going home. Agrees to return if he worsens. will drive him. Medical Decision Making - Management Options MDM Management: No Additional Work-up Planned (Patient is refusing to be admitted. Wants to go home.) - Data Complexity MDM Data: Labs Ordered and/or Reviewed, X-Ray Ordered and/or Reviewed (Contrast Ct ABd/Pelvis: Mild fat stranding adjacent to the pancreatic tail may represent early pancreatitis. Hemangioma within the inferior right hepatic lobe measures 2.4 cm.), EKG Ordered and/or Reviewed (Ventricular Paced rhythm) - Lab Data Result diagrams: 04/12/17 21:50 04/12/17 21:50 - EKG Data -: EKG Interpreted by Me Disposition Disposition: Discharge Clinical Impression: Pancreatitis Qualifiers: Chronicity: acute Pancreatitis type: unspecified pancreatitis type Acute pancreatitis complication: unspecified Qualified Code(s): K85.90 - Acute pancreatitis without necrosis or infection, unspecified Disposition: Against Medical Advice Condition: (2) Stable Instructions: Pancreatitis (ED) Additional Instructions: Clear liquids and push fluids. Ultram as directed as needed for pain. follow up with PCP Dr. Harris--call today for appointment next week. No alcohol, no foods until pain is resolved. Return to EDept is worsened sooner. Prescriptions: Tramadol HCl [Ultram] 50 mg PO Q8H #10 tab Forms: Patient Portal Access Quality - Quality Measures Quality Measures: N/A - Blood Pressure Screening Does Patient Have Any of the Following: No Blood Pressure Classification: Pre-Hypertensive BP Reading Systolic Measurement: 147 Diastolic Measurement: 83 Screening for High Blood Pressure: < Pre-Hypertensive BP, F/U Documented > [ G8950] Pre-Hypertensive Follow-up Interventions: Follow-up with rescreen every year.
[2017-04-12] MEDS ORDERED: 0.9 % SODIUM CHLORIDE 1,000 ML BAG IV ONE ×2 (21:25→23:28)
[2017-04-12] MEDS ORDERED: ONDANSETRON HCL IV 4 MG/2 ML VIAL IV ONE (21:25)
[2017-04-12] MEDS ORDERED: DICYCLOMINE HCL 10 MG/ML AMPUL IM ONE (22:08)
[2017-04-12 22:10] LABS: BASO % 0.6 % (0-6); EOS % 3.1 % (0-6); GRAN % 52.7 % (47-80); HEMATOCRIT 50.8 % (42.0-52.0); LYMPH % 32.2 % (16-45); MEAN CORPUSCULAR HEMOGLOBIN 32.6 pg (27-33); MEAN CORPUSCULAR HGB CONC 35.4 g/dl (32-36); MEAN PLATELET VOLUME 11.3 fl (7.4-10.4); MONO % 11.4 % (0-9); PLATELET COUNT 203 K/uL (130-400); RED BLOOD COUNT 5.52 M/uL (4.40-5.70); RED CELL DISTRIBUTION WIDTH 12.5 % (11.5-14.5); WHITE BLOOD COUNT W/O DIFF 9.8 K/uL (4.2-12.2)
[2017-04-12] MEDS ORDERED: HYDROMORPHONE HCL 1 MG/ML SYRINGE IVP ONE (22:23)
[2017-04-12 22:25] LABS: BLOOD UREA NITROGEN 21 mg/dL (6-20); CREATININE 0.9 mg/dL (0.7-1.2); EST GLOMERULAR FILTRATION RATE > 60 mL/min; TOTAL PROTEIN 7.4 g/dL (6.6-8.7)
[2017-04-12 22:27] LABS: GLUCOSE,RANDOM 130 mg/dL (74-109)
[2017-04-12 22:30] LABS: ALBUMIN 3.9 g/dL (4.0-5.0); ALKALINE PHOSPHATASE 115 U/L (40-129); ALT/SGPT 77 U/L (<41); AST/SGOT 44 U/L (10.0-50.0); LIPASE 232 U/L (13-60)
[2017-04-12 22:31] LABS: BILIRUBIN,DIRECT < 0.2 mg/dL (0-0.3)
[2017-04-13 00:25] LABS: URINE APPEARANCE CLEAR; URINE BILIRUBIN NEGATIVE (NEGATIVE); URINE BLOOD TRACE-I (NEGATIVE); URINE COLOR YELLOW; URINE GLUCOSE (UA) NEGATIVE (NEGATIVE); URINE KETONE NEGATIVE (NEGATIVE); URINE LEUKOCYTE ESTERASE NEGATIVE (NEGATIVE); URINE NITRITE NEGATIVE (NEGATIVE); URINE PROTEIN NEGATIVE (NEGATIVE); URINE UROBILINOGEN 0.2 E.U./dL (0.20 - 1.00)
[2017-04-13 00:39] LABS: URINE RBC 0 - 2 (NONE SEEN); URINE WBC 0 - 2 (0-2/hpf)
[2017-04-13] MEDS ORDERED: HYDROMORPHONE HCL 1 MG/ML SYRINGE IVP ONE (00:54)
[2017-04-13] MEDS ORDERED: TRAMADOL HCL 50 MG TABLET PO ONE (00:55)
--- NOTE | 2017-04-13 09:28 | CT SCAN REPORT ---
EXAM: CT OF THE ABDOMEN AND PELVIS WITH CONTRAST HISTORY: UPPER EPIGASTRIC PAIN. TECHNIQUE: Sequential axial images were obtained from the diaphragms through the ischiorectal fossa after intravenous and oral administration of 100 ml of Omnipaque 300 contrast material. FINDINGS: The visualized lung bases appear normal. There is a hemangioma in the right lobe of the liver measuring 2.4 cm. No gallstones or ductal dilatation. There is mild peripancreatic fat stranding in the tail region. The spleen appears normal. The adrenal glands and kidneys appear normal. The small and large bowel appears normal. The urinary bladder appears normal. There is a fat containing left inguinal hernia. The prostate gland appears normal. The osseous structures are normal. IMPRESSION: 1. FINDINGS SUGGESTIVE OF EARLY PANCREATITIS SURROUNDING THE PANCREATIC TAIL. 2. FAT CONTAINING LEFT INGUINAL HERNIA. 3. BENIGN APPEARING HEMANGIOMA IN THE RIGHT LOBE OF THE LIVER MEASURING 2.4 CM. JOB NUMBER: [id number] MTDD
== END 2017-04-13 01:18 | disposition left against medical advice (07) ==
LOC: ER 20:53
DX: K85.90 Acute pancreatitis without necrosis or infection, unspecified (principal); B18.2 Chronic viral hepatitis C; I10 Essential (primary) hypertension; F17.210 Nicotine dependence, cigarettes, uncomplicated
CPT/HCPCS: 99284 ×2; 96376; 96374; 96375; 83550; 83690; 85025; 80076; 80048; 81001; 82728; 86038; 84443; 84484; 74177; 93005; 93010; G0480; Q9967; J2405; J1170 ×2; 80320; J7030

== ENCOUNTER 2017-05-17 09:41 | Day surgery (SDC) | payer MEDICAID ==
[2017-05-17] MEDS ORDERED: PROPOFOL 10 MG/ML VIAL IV ONE (09:42)
[2017-05-17] MEDS ORDERED: LIDOCAINE 2% MDV (20MG/ML) 20ML VIAL IV ONE (09:42)
--- NOTE | 2017-05-18 12:40 | Operative Note ---
DATE OF SURGERY: 05/17/2017 OPERATION: COLONOSCOPY with cold snare polypectomy x5. PREOPERATIVE DIAGNOSIS: Colon cancer screening, average risk. POSTOPERATIVE DIAGNOSES: 1. Cecal polyps x2, status post cold snare polypectomy. 2. Transverse colon polyps x2, status post cold snare polypectomy. 3. Rectosigmoid polyp x1, status post cold snare polypectomy. 4. Sigmoid diverticulosis, mild to moderate. PREPARATION QUALITY: Good. ESTIMATED BLOOD LOSS: Minimum. SPECIMENS: Cecal polyps, transverse colon polyps, rectosigmoid colon polyp. PROCEDURE: After informed consent was obtained from the patient, he was placed in the left lateral decubitus position in the endoscopy suite, sedated and monitored by the department of anesthesia. Digital rectal examination was unremarkable. A well-lubricated [id number] colonoscope was inserted into the rectum and advanced through a tortuous and redundant colon to the level of the cecum. Preparation quality was good. There was a 6-7 mm sessile cecal polyp removed with a cold snare. There was a second polyp in the area that was approximately 4-5 mm removed with a cold snare. Minimal bleeding was noted at the sites. In the ascending colon, no polyps or mass lesions or diverticula were seen. In the transverse colon, there were 2 polyps, each removed with a cold snare. There was a small residual tissue removed with a cold forceps. The remainder of the transverse colon and descending colon were unremarkable. The sigmoid colon demonstrated [id number] diverticular changes. The rectosigmoid colon revealed a 5-6 mm polyp removed with a cold snare. The rectum was unremarkable in forward and J-turn views. The endoscope was straightened, the rectal ampulla deflated, and the endoscope was removed. RECOMMENDATIONS: I would suggest the patient resume his medications and diet. We will be attempting to obtain authorization for treatment with Mavyret for his genotype 3 hepatitis C. he will require repeat colonoscopy in 3 years. He should follow a high-fiber diet and discontinue tobacco use. As always, thank you for allowing me to participate in the healthcare of your patients. CC: Dr. Elmer MADRIGAL
== END 2017-05-17 11:45 | disposition home or self-care (01) ==
LOC: HOP 09:41
PROVIDERS: ATTEND Internal Medicine Gastroenterology
DX: Z12.11 Encounter for screening for malignant neoplasm of colon (principal); D12.7 Benign neoplasm of rectosigmoid junction; D12.3 Benign neoplasm of transverse colon; D12.0 Benign neoplasm of cecum; K57.30 Diverticulosis of large intestine without perforation or abscess without bleeding

== ENCOUNTER 2017-06-29 15:47 | Emergency (ER) | payer MEDICAID ==
--- NOTE | 2017-06-29 16:10 | Emergency Department Record ---
History of Present Illness - General Stated Complaint: PACEMAKER WIRES MAY BE OUT Time Seen by Provider: 06/29/17 16:00 Source: Patient Mode of Arrival: Ambulatory Limitations: No limitations - History of Present Illness Initial comments: 57 yo male presents with a one week concern about his pacemaker wire leads. 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 About 2 months ago the pacer was revised due to a lead coming unattached. For one week he has felt a prominent area in the area of the pacer leads. He denies any syncope, dizziness, bradycardia. He states he was asymptomatic with a HR of 30 at the time of initial diagnosis. 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 He did see Dr Tobar in [place] in follow up but not longer follows with him. The patient reports he had a negative cath with Dr Tobar. -: Week(s) (1) Location: Other (Left upper chest) Quality: Aching Consistency: Constant Improves with: None Worsens with: None Associated Symptoms: Denies other symptoms - Karoline Coma Scale Eye Response: (4) Open spontaneously Motor Response: (6) Obeys commands Verbal Response: (5) Oriented [place] Total: 15 - Related Data Allergies Allergy/AdvReac Type Severity Reaction Status Date / Time acetaminophen [From Vicodin] AdvReac Intermediate VOMITING Verified 06/29/17 16: 06 hydrocodone bitartrate AdvReac Intermediate VOMITING Verified 06/29/17 16:06 [From Vicodin] morphine AdvReac Intermediate VOMITING Verified 06/29/17 16:06 Penicillins AdvReac VOMITING Verified 06/29/17 16:06 Review of Systems Constitutional: Denies: Chills, Fever, Malaise Eyes: Denies: Eye discharge ENT: Denies: Congestion, Throat pain Respiratory: Denies: Cough, Dyspnea, Hemoptysis, Stridor Cardiovascular: Reports: Chest pain (at pacer site) Endocrine: Denies: Fatigue Gastrointestinal: Denies: Abdominal pain, Diarrhea, Nausea, Vomiting Genitourinary: Denies: Dysuria, Frequency, Hematuria Musculoskeletal: Denies: Arthralgia, Back pain, Neck pain Skin: Denies: Bruising, Change in color, Rash Neurological: Denies: Headache Psychiatric: Denies: Anxiety Hematological/Lymphatic: Denies: Blood Clots, Easy bleeding, Easy bruising Past Medical History - SOCIAL HISTORY Alcohol Use Comment: no etoh for past four months - RESPIRATORY Hx Respiratory Disorders: No Hx Asthma: No Hx Bronchitis: No Hx COPD: No Hx Dyspnea: No Hx Pneumonia: No Hx Pulmonary Embolism: No Hx Sleep Apnea: No Hx Tuberculosis: No Hx of CPAP: No - CARDIOVASCULAR Comment:: all started in August and discoverwed low HR - NEURO Hx Neuro Disorders: Yes Hx Weakness: Yes - GI Hx GI Disorders: Yes Hx Reflux: Yes Hx Hepatitis/Jaundice: Yes (Hep C) Hx Pancreatitis: Yes (new dx in ER) Hx Rectal Bleeding: Yes - Hx Genitourinary Disorders: No Hx Bladder Problem: No Hx Dialysis: No Hx Kidney Stones: No Hx Prostate Problems: No Hx Renal Disease: No Hx UTI: No - ENDOCRINE Hx Endocrine Disorders: No Hx Diabetes: No Hx Thyroid Disease: No - MUSCULOSKELETAL Hx Musculoskeletal Disorders: Yes Hx Arthritis: No - PSYCH Hx Psych Problems: No - HEMATOLOGY/ONCOLOGY Hx Hematology/Oncology Disorders: No Hx Anemia: No Hx Blood Disorders: No Hx Bruising: No Hx Cancer: No Family Medical History Hx Cancer: Mother Hx Heart Disease: Father Hx HTN: Mother Hx Stroke: Mother Physical Exam - General General Appearance: Alert, Oriented x3, Cooperative, No acute distress Limitations: No limitations - Head Head exam: Atraumatic, Normal inspection - Eye Eye exam: Normal appearance. negative: Conjunctival injection, Scleral icterus - ENT ENT exam: Normal exam Ear exam: Normal external inspection Nasal Exam: Normal inspection Mouth exam: Normal external inspection - Neck Neck exam: Normal inspection, Full ROM. negative: Tenderness - Respiratory Respiratory exam: Normal lung sounds bilaterally, Chest wall tenderness (mild tenderness at the site of the pacer, no redness or warmth, no swelling, well healed). negative: Accessory muscle use, Decreased breath sounds, Respiratory distress, Rhonchi, Stridor, Wheezes - Cardiovascular Cardiovascular Exam: Regular rate, Normal rhythm, Normal heart sounds Peripheral Pulses: 2+: Radial (R), Radial (L) - GI/Abdominal GI/Abdominal exam: Soft - Rectal Rectal exam: Deferred - exam: Deferred - Extremities Extremities exam: Normal inspection, Full ROM, Normal capillary refill. negative: Pedal edema, Tenderness - Neurological Neurological exam: Alert, Oriented X3 - Psychiatric Psychiatric exam: Normal affect, Normal mood - Skin Skin exam: Dry, Intact, Normal color, Warm Course - Reevaluation(s) Reevaluation #1: Records from prior visits reviewed Paced rhythm on most recent on 04/12/17 and 12/30/16 rates of 60 and 66 respectively 06/29/17 16:12 06/29/17 16:25 Paced rhythm, rate 76, capture noted, no dropped beats. 06/29/17 16:38 The chest XR was reviewed No acute process. No signs of lead fracture or disconnect The patient was informed of the results and we discussed reasons to return to the ED Disposition Disposition: Discharge Clinical Impression: Paced rhythm on electrocardiogram (ECG) Disposition: Home, Self-Care Condition: (1) Good Instructions: Bradycardia (ED) Additional Instructions: Call your heart doctor for followup as needed Return to the ER if you have redness, swelling or any concerns about slow heart rate, pace issues Time of Disposition: 16:40 Quality - Quality Measures Quality Measures: N/A - Blood Pressure Screening Does Patient Have Any of the Following: Active Dx of HTN Blood Pressure Classification: Hypertensive Reading Systolic Measurement: 135 Diastolic Measurement: 99 Screening for High Blood Pressure: Patient Exclusion, Hx of HTN [G9744]
--- NOTE | 2017-06-30 12:09 | RADIOLOGY REPORT ---
DATE: 06/30/2015. EXAM: CHEST, TWO VIEWS. COMPARISON: None. HISTORY: Pacemaker complaints. TECHNIQUE: Two views of the chest were obtained. FINDINGS: Left-sided chest pacemaker in place. The cardiomediastinal silhouette is stable. The lungs and pleural spaces are clear. IMPRESSION: STABLE CHEST. JOB NUMBER: [id number] MTDD
== END 2017-06-29 17:13 | disposition home or self-care (01) ==
LOC: ER 15:47
DX: R07.89 Other chest pain (principal); R94.31 Abnormal electrocardiogram [ECG] [EKG]; I10 Essential (primary) hypertension; Z95.0 Presence of cardiac pacemaker
CPT/HCPCS: 71046; 93005; 93010; 99284

== ENCOUNTER 2018-04-24 13:23 | Emergency (ER) | payer MEDICAID ==
[2018-04-24] MEDS ORDERED: 0.9 % SODIUM CHLORIDE 1,000 ML BAG IV ONE (13:36)
[2018-04-24] MEDS ORDERED: HYDROMORPHONE HCL 2 MG/ML VIAL IVP ONE (13:39)
[2018-04-24] MEDS ORDERED: ONDANSETRON HCL IV 4 MG/2 ML VIAL IVP ONE (13:39)
--- NOTE | 2018-04-24 13:55 | Emergency Department Record ---
History of Present Illness - General Chief Complaint: Abdominal Pain Stated Complaint: BACK,RT SIDE ABDOMINAL PAIN\ Time Seen by Provider: 04/24/18 13:36 Source: Patient, RN Mode of Arrival: Ambulatory - History of Present Illness Initial Comments: patient has right sided abdominal pain and it radiates into his back and he has had pancreatitis before and he drank alcohol yesterday and the pain started 4 days ago. Onset/Timin -: Days(s) Location: RUQ Radiation: Back Severity: Moderate Severity scale (1-10): 8 Quality: Stabbing Consistency: Constant Improves With: Nothing Worsens With: Nothing Associated Symptoms: Denies other symptoms - Related Data Previous Rx's Medication Instructions Recorded Hydrocodone/Acetaminophen [Ennis 1 each PO Q4HR #18 tablet 04/24/18 7.5-325 Tablet] Ondansetron HCl [Zofran] 4 mg PO Q4HR #20 tablet 04/24/18 Allergies Allergy/AdvReac Type Severity Reaction Status Date / Time hydrocodone bitartrate AdvReac Intermediate VOMITING Verified 04/24/18 13:31 [From Vicodin] morphine AdvReac Intermediate VOMITING Verified 04/24/18 13:31 Penicillins AdvReac VOMITING Verified 04/24/18 13:31 Travel Screening - Travel/Exposure Within Last 30 Days Have you traveled within the last 30 days?: No - Travel/Exposure Within Last Year Have you traveled outside the [place] in the last year?: No - Additonal Travel Details Have you been exposed to anyone with a communicable illness?: No - Travel Symptoms Symptom Screening: None Review of Systems Reviewed: No additional complaints except as noted below Constitutional: Reports: As per HPI. Denies: Chills, Fever, Malaise, Night sweats, Weakness, Weight change Eyes: Reports: As per HPI. Denies: Eye discharge, Eye pain, Photophobia, Vision change ENT: Reports: As per HPI. Denies: Congestion, Dental pain, Ear pain, Epistaxis , Hearing loss, Throat pain Respiratory: Reports: As per HPI. Denies: Cough, Dyspnea, Hemoptysis, Stridor, Wheezes Cardiovascular: Reports: As per HPI. Denies: Arrhythmia, Chest pain, Dyspnea on exertion, Edema, Murmurs, Orthopnea, Palpitations, Paroxysmal nocturnal dyspnea, Rheumatic Fever, Syncope Endocrine: Reports: As per HPI. Denies: Fatigue, Heat or cold intolerance, Polydipsia, Polyuria Gastrointestinal: Reports: As per HPI, Abdominal pain. Denies: Constipation, Diarrhea, Hematemesis, Hematochezia, Melena, Nausea, Vomiting Genitourinary: Reports: As per HPI. Denies: Dysuria, Frequency, Hematuria, Incontinence, Retention, Testicular pain, Testicular mass, Urgency Musculoskeletal: Reports: As per HPI. Denies: Arthralgia, Back pain, Gout, Joint swelling, Myalgia, Neck pain Skin: Reports: As per HPI. Denies: Bruising, Change in color, Change in hair/ nails, Lesions, Pruritus, Rash Neurological: Reports: As per HPI. Denies: Abnormal gait, Confusion, Headache, Numbness, Paresthesias, Seizure, Tingling, Tremors, Vertigo, Weakness Psychiatric: Reports: As per HPI. Denies: Anxiety, Auditory hallucinations, Depression, Homicidal thoughts, Suicidal thoughts, Visual hallucinations Hematological/Lymphatic: Reports: As per HPI. Denies: Anemia, Blood Clots, Easy bleeding, Easy bruising, Swollen glands Past Medical History - SOCIAL HISTORY Smoking Status: Current every day smoker Alcohol Use: Occasional Drug Use: None - RESPIRATORY Hx Respiratory Disorders: No Hx Asthma: No Hx Bronchitis: No Hx COPD: No Hx Dyspnea: No Hx Pneumonia: No Hx Pulmonary Embolism: No Hx Sleep Apnea: No Hx Tuberculosis: No Hx of CPAP: No - CARDIOVASCULAR Hx Cardio Disorders: Yes Comment:: all started in August and discoverwed low HR - NEURO Hx Neuro Disorders: Yes Hx Weakness: Yes - GI Hx GI Disorders: Yes Hx Reflux: Yes Hx Hepatitis/Jaundice: Yes (Hep C) Hx Pancreatitis: Yes (new dx in ER) Hx Rectal Bleeding: Yes - Hx Genitourinary Disorders: No Hx Bladder Problem: No Hx Dialysis: No Hx Kidney Stones: No Hx Prostate Problems: No Hx Renal Disease: No Hx UTI: No - ENDOCRINE Hx Endocrine Disorders: No Hx Diabetes: No Hx Thyroid Disease: No - MUSCULOSKELETAL Hx Musculoskeletal Disorders: Yes Hx Arthritis: No - PSYCH Hx Psych Problems: No - HEMATOLOGY/ONCOLOGY Hx Hematology/Oncology Disorders: No Hx Anemia: No Hx Blood Disorders: No Hx Bruising: No Hx Cancer: No Family Medical History Any Significant Family History?: Yes Hx Cancer: Mother Hx Heart Disease: Father Hx HTN: Mother Hx Stroke: Mother Physical Exam - General General Appearance: Alert, Oriented x3, Cooperative, Mild distress - Head Head exam: Normal inspection - Eye Eye exam: Normal appearance, PERRL Pupils: Normal accommodation - ENT ENT exam: Normal exam, Mucous membranes moist, Normal external ear exam, Normal orophraynx, TM's normal bilaterally Ear exam: Normal external inspection. negative: External canal tenderness Nasal Exam: Normal inspection. negative: Discharge, Sinus tenderness Mouth exam: Normal external inspection, Tongue normal Teeth exam: Normal inspection. negative: Dental caries Throat exam: Normal inspection. negative: Tonsillar erythema, Tonsillar exudate - Neck Neck exam: Normal inspection, Full ROM. negative: Tenderness - Respiratory Respiratory exam: Normal lung sounds bilaterally. negative: Respiratory distress - Cardiovascular Cardiovascular Exam: Regular rate, Normal rhythm, Normal heart sounds - GI/Abdominal GI/Abdominal exam: Soft, Normal bowel sounds, Guarding, Tenderness (right uppe quad and radiates into his back). negative: Bruit, Distended, Hyperactive bowel sounds, Hypoactive bowel sounds, Mass, Organomegaly, Pulsatile mass, Rebound - Rectal Rectal exam: Deferred - exam: Deferred - Extremities Extremities exam: Normal inspection, Full ROM, Normal capillary refill. negative: Tenderness - Back Back exam: Reports: Normal inspection, Full ROM. Denies: Muscle spasm, Rash noted, Tenderness - Neurological Neurological exam: Alert, Normal gait, Oriented X3, Reflexes normal - Psychiatric Psychiatric exam: Normal affect, Normal mood - Skin Skin exam: Dry, Intact, Normal color, Warm Course Vital Signs 04/24/18 13:34 Temperature 97.6 F Pulse Rate 61 Respiratory 20 Rate Blood Pressure 150/91 Pulse Ox 99 - Reevaluation(s) Reevaluation #1: offerrred admission and he said he wanted to try outpatient. Since patient not vomiting will try out patient therapy. 04/24/18 18:22 Medical Decision Making - Data Complexity MDM Data: Labs Ordered and/or Reviewed (lipase 120), X-Ray Ordered and/or Reviewed (CT of abd and pelvic essentially negative, US neg of abd) - Lab Data Result diagrams: 04/24/18 13:45 04/24/18 13:45 Disposition Clinical Impression: Pancreatitis, acute Qualifiers: Pancreatitis type: alcohol induced Acute pancreatitis complication: no infection or necrosis Qualified Code(s): K85.20 - Alcohol induced acute pancreatitis without necrosis or infection Pancreatitis Qualifiers: Chronicity: acute Pancreatitis type: alcohol induced Acute pancreatitis complication: unspecified Qualified Code(s): K85.20 - Alcohol induced acute pancreatitis without necrosis or infection Disposition: Home, Self-Care Instructions: Pancreatitis (ED) Additional Instructions: nothing by mouth for 4 hours and than clear liquids for 24 hours if worse return to ED follow up with Dr. Harris in 5 days No alcohol Prescriptions: Hydrocodone/Acetaminophen [Ennis 7.5-325 Tablet] 1 each PO Q4HR #18 tablet Ondansetron HCl [Zofran] 4 mg PO Q4HR #20 tablet Forms: Patient Portal Access Time of Disposition: 18:31 Quality - Quality Measures Quality Measures: N/A - Blood Pressure Screening Does Patient Have Any of the Following: No Blood Pressure Classification: Hypertensive Reading Systolic Measurement: 150 Diastolic Measurement: 91 Screening for High Blood Pressure: < Pre-Hypertensive BP, F/U Documented > [ G8950] Pre-Hypertensive Follow-up Interventions: Referral to alternative/primary care provider.
[2018-04-24 13:58] LABS: BASO % 0.8 % (0-6); EOS % 2.9 % (0-6); GRAN % 45.5 % (47-80); HEMATOCRIT 51.8 % (42.0-52.0); HEMOGLOBIN 18.1 gm/dl (14.0-18.0); LYMPH % 41.2 % (16-45); MEAN CELL VOLUME 94.5 fl (81-97); MEAN CORPUSCULAR HGB CONC 34.9 g/dl (32-36); MEAN PLATELET VOLUME 10.6 fl (7.4-10.4); MONO % 9.6 % (0-9); PLATELET COUNT 194 K/uL (130-400); RED BLOOD COUNT 5.48 M/uL (4.40-5.70); RED CELL DISTRIBUTION WIDTH 13.2 % (11.5-14.5); WHITE BLOOD COUNT W/O DIFF 7.7 K/uL (4.2-12.2)
[2018-04-24 13:59] LABS: URINE APPEARANCE CLEAR; URINE BILIRUBIN NEGATIVE (NEGATIVE); URINE BLOOD SMALL (NEGATIVE); URINE COLOR YELLOW; URINE GLUCOSE (UA) NEGATIVE (NEGATIVE); URINE KETONE NEGATIVE (NEGATIVE); URINE LEUKOCYTE ESTERASE NEGATIVE (NEGATIVE); URINE NITRITE NEGATIVE (NEGATIVE); URINE PROTEIN NEGATIVE (NEGATIVE); URINE UROBILINOGEN 0.2 E.U./dL (0.20 - 1.00)
[2018-04-24 14:07] LABS: BLOOD UREA NITROGEN 17 mg/dL (6-20)
[2018-04-24 14:08] LABS: EST GLOMERULAR FILTRATION RATE > 60 mL/min; TOTAL PROTEIN 7.4 g/dL (6.6-8.7)
[2018-04-24 14:10] LABS: GLUCOSE,RANDOM 89 mg/dL (74-109)
[2018-04-24 14:13] LABS: ALBUMIN 4.1 g/dL (4.0-5.0); ALKALINE PHOSPHATASE 89 U/L (40-129); ALT/SGPT 24 U/L (<41); AST/SGOT 22 U/L (10.0-50.0); LIPASE 122 U/L (13-60)
[2018-04-24 14:14] LABS: BILIRUBIN,DIRECT < 0.2 mg/dL (0-0.3); URINE BACTERIA NONE SEEN; URINE EPITHELIAL CELLS 0 - 2 (FEW); URINE RBC 0 - 3 (NONE SEEN); URINE WBC 0 - 2 (0-2/hpf)
[2018-04-24] MEDS ORDERED: HYDROCODONE/APAP 7.5/325MG TABLET PO ONE (18:24)
[2018-04-24] MEDS ORDERED: ONDANSETRON 4 MG ODT TABLET SL ONE (18:24)
--- NOTE | 2018-04-25 10:16 | CT SCAN REPORT ---
EXAM: NONCONTRAST CT OF THE ABDOMEN AND PELVIS HISTORY: BACK PAIN, HISTORY OF PANCREATITIS. PREVIOUS APPENDECTOMY. TECHNIQUE: Noncontrast CT of the abdomen and pelvis was obtained. Comparison: CT of the abdomen and pelvis with contrast 04/12/17. FINDINGS: Mild atelectasis in both lung bases. Subtle rounded low attenuation lesion in the right hepatic lobe corresponding to previously seen hemangioma. Unremarkable noncontrast CT appearance of the gallbladder, spleen, adrenal glands, and pancreas. Nonspecific bilateral perinephric fat stranding, similar from comparison study. No hydronephrosis. No calculi detected. Mild circumferential thickening of the urinary bladder wall. Small fat containing left inguinal hernia. Descending and sigmoid colon diverticulosis without evidence of acute diverticulitis. The stomach and small bowel are not dilated. No free air or free fluid in the abdomen or pelvis. Aortoiliac arterial access is diffusely calcified without aneurysmal dilation. No definite acute osseous findings. IMPRESSION: 1. NO DEFINITE ACUTE ABDOMINAL OR PELVIC FINDINGS. 2. SMALL FAT CONTAINING LEFT INGUINAL HERNIA. 3. MILD URINARY BLADDER WALL THICKENING; THE FINDING IS NONSPECIFIC. RECOMMEND CORRELATION FOR CLINICAL EVIDENCE OF CYSTITIS. 4. COLONIC DIVERTICULOSIS WITHOUT EVIDENCE OF ACUTE DIVERTICULITIS. 5. RIGHT HEPATIC HEMANGIOMA, SIMILAR IN SIZE FROM 2017 CT COMPARISON. JOB NUMBER: [id number] MTDD
--- NOTE | 2018-04-25 10:40 | ULTRASOUND REPORT ---
EXAM: ULTRASOUND OF THE ABDOMEN HISTORY: RIGHT UPPER QUADRANT PAIN, PRIOR APPENDECTOMY. TECHNIQUE: Ultrasound of the abdomen was obtained. FINDINGS: The hepatic echotexture is mildly increased suggesting an element of hepatocellular disease. A hyperechoic lesion measuring 2.5 cm in the right lower of the liver appears to be a hemangioma. No intrahepatic biliary dilatation is seen. The gallbladder demonstrates no evidence of distention or pericholecystic fluid. The gallbladder wall thickness is at the upper limits of normal. The common duct measures 3 mm, within normal limits. The spleen is unremarkable. There is no hydronephrosis or solid renal masses on the right. There is no ascites. There is no evidence of a sonographic Mcdermott's sign. There is limited evaluation of the pancreas secondary to overlying bowel gas. IMPRESSION: THERE IS NO CONVINCING EVIDENCE OF CHOLECYSTITIS OR GALLSTONES. POSSIBLE HEPATOCELLULAR DISEASE. CORRELATE CLINICALLY FOR APPROPRIATE HISTORY. POSSIBLE HEPATIC HEMANGIOMA. THE EXAMINATION IS NOT SIGNIFICANTLY CHANGED FROM THE CT EXAM PERFORMED EARLIER TODAY OR OTHER ACUTE PROCESS. JOB NUMBER: [id number] MTDD
== END 2018-04-24 18:47 | disposition home or self-care (01) ==
LOC: ER 13:23
DX: K85.20 Alcohol induced acute pancreatitis without necrosis or infection (principal); R11.0 Nausea; R10.11 Right upper quadrant pain; F17.210 Nicotine dependence, cigarettes, uncomplicated
CPT/HCPCS: 99284 ×2; 96374; 96375; 83690; 85025; 80076; 80048; 81001; 76700; 74176; J2405; J1170; J7030